=== PATIENT | male | born 1945 | race Caucasian/White ===

== ENCOUNTER → 2017-12-25 14:21 | Outpatient (CLI) | payer MEDICARE, SELFPAY | PROVIDERS: Family Provider Family Medicine Geriatric Medicine; Visit Provider Podiatrist | DX: L03.115 Cellulitis of right lower limb (principal) | CPT/HCPCS: 87070; 87077; 87186; 87205 ==

== ENCOUNTER → 2018-03-21 14:14 | Outpatient (CLI) | payer MEDICARE, SELFPAY ==
[2018-03-21 16:48] LABS: Absolute Neutrophil Count 1.7 X10^3/uL (2.0-7.7); Basophil# 0.08 X10^3/uL; Basophil% 2.3 % (0-1); Eosinophil# 0.17 X10^3/uL; Eosinophils% 4.8 % (0-5); Hematocrit 29.6 % (40-54); Hemoglobin 9.1 g/dl (13.0-16.5); Lymphocyte % 33.9 % (19-41); Mean Corp Hgb Conc 30.7 g/gl (32-36); Mean Corpuscular Hgb 32.5 pg (27.0-32.0); Mean Corpuscular Volume 105.7 fL (80-94); Mean Platelet Vol. 10.6 fl (6.2-12.0); Monocyte# 0.35 X10^3/uL; Monocyte% 9.9 % (0-10); Neutrophil # 1.74 X10^3/uL (2.7-7.7); Neutrophil % 49.1 % (47-70); Platelet Count 301 K/mm3 (150-450); RBC Distribution Width CV 19.5 % (11.6-14.6); RBC Distribution Width SD 72.4 fl (35.1-43.9); White Blood Count 3.5 K/mm3 (4.4-11.0)
[2018-03-21 16:59] LABS: Differential Indicated SCAN CRITERIA MET; POSITIVE COUNT NO; POSITIVE DIFFERENTIAL NO; POSITIVE MORPHOLOGY YES
[2018-03-21 17:01] LABS: ALB/GLOB Ratio 1.1 RATIO (0.9-2.4); AST(SGOT) 26 U/L (15-37); Alanine Aminotransfer ALT/SGPT 28 U/L (16-61); Albumin, Serum 3.1 g/dL (3.2-5.0); Alkaline Phosphatase 102 U/L (45-117); Anion Gap 6 (5-15); BUN 16 mg/dL (7-18); Calcium,Total 8.5 mg/dL (8.5-10.1); Chloride 103 mmol/L (98-107); Creatinine, Serum 0.67 mg/dL (0.70-1.30); EST Glomerular Filtration Rate 124 mL/min (>60); Est Glom Filt Rate - Afr Amer 150 mL/min (>60); Globulin 2.9 g/dL (2.2-4.2); Glucose 95 mg/dL (74-106); Potassium 4.2 mmol/L (3.5-5.1); Sodium Level 141 mmol/L (136-145); Thyroid Stim Hormone (TSH) 0.72 uIU/mL (0.358-3.74)
[2018-03-21 18:16] LABS: Platelet Estimate ADEQUATE (ADEQ)
[2018-03-21 18:17] LABS: Anisocytosis 1+; Hypochromasia RARE; Macrocytosis 1+
[2018-03-22 08:24] LABS: Vitamin D,25 Hydroxy 18.4 ng/mL (29.95-100.01)
== END ==
PROVIDERS: Family Provider Family Medicine Geriatric Medicine; PCP Family Medicine Geriatric Medicine; Visit Provider Family Medicine Geriatric Medicine
DX: I10 Essential (primary) hypertension (principal); E55.9 Vitamin D deficiency, unspecified
CPT/HCPCS: 36415; 80053; 82306; 84443; 85025

== ENCOUNTER → 2018-06-12 13:56 | Outpatient (CLI) | payer MEDICARE, SELFPAY ==
[2018-06-12 15:12] LABS: Absolute Lymphocyte Count 1.27 X10^3/ul (0.83-4.51); Basophil# 0.09 X10^3/uL; Basophil% 2.3 % (0-1); Eosinophil# 0.16 X10^3/uL; Eosinophils% 4.2 % (0-5); Hematocrit 31.4 % (40-54); Hemoglobin 9.5 g/dl (13.0-16.5); Lymphocyte # 1.27 X10^3/ul (4.0); Mean Corp Hgb Conc 30.3 g/gl (32-36); Mean Corpuscular Hgb 31.5 pg (27.0-32.0); Mean Platelet Vol. 10.1 fl (6.2-12.0); Monocyte% 7.8 % (0-10); Neutrophil # 2.03 X10^3/uL (2.7-7.7); Neutrophil % 52.7 % (47-70); Platelet Count 286 K/mm3 (150-450); RBC Distribution Width CV 19.6 % (11.6-14.6); RBC Distribution Width SD 72.1 fl (35.1-43.9); Red Blood Count 3.02 M/mm3 (4.6-6.2); White Blood Count 3.9 K/mm3 (4.4-11.0)
[2018-06-12 15:13] LABS: POSITIVE COUNT NO; POSITIVE DIFFERENTIAL NO
[2018-06-12 15:14] LABS: Differential Indicated SCAN CRITERIA MET; POSITIVE MORPHOLOGY YES
[2018-06-12 15:52] LABS: ALB/GLOB Ratio 1.3 RATIO (0.9-2.4); AST(SGOT) 19 U/L (15-37); Alanine Aminotransfer ALT/SGPT 28 U/L (16-61); Albumin, Serum 3.6 g/dL (3.2-5.0); Alkaline Phosphatase 82 U/L (45-117); Anion Gap 5 (5-15); BUN 18 mg/dL (7-18); BUN/Creat Ratio 26.1 RATIO (10-20); Calcium,Total 8.5 mg/dL (8.5-10.1); Chloride 104 mmol/L (98-107); Creatinine, Serum 0.69 mg/dL (0.70-1.30); EST Glomerular Filtration Rate 119 mL/min (>60); Est Glom Filt Rate - Afr Amer 144 mL/min (>60); Globulin 2.8 g/dL (2.2-4.2); Glucose 97 mg/dL (74-106); Potassium 3.7 mmol/L (3.5-5.1); Protein, Total 6.4 g/dL (6.4-8.2); Sodium Level 142 mmol/L (136-145)
[2018-06-12 15:54] LABS: Vitamin D,25 Hydroxy 14.1 ng/mL (29.95-100.01)
[2018-06-12 17:09] LABS: Anisocytosis 1+; Differential Comment SCANNED
== END ==
PROVIDERS: Family Provider Family Medicine Geriatric Medicine; PCP Family Medicine Geriatric Medicine; Visit Provider Family Medicine Geriatric Medicine
DX: I10 Essential (primary) hypertension (principal); E55.9 Vitamin D deficiency, unspecified
CPT/HCPCS: 36415; 80053; 82306; 84443; 85025

== ENCOUNTER → 2018-08-03 11:26 | Outpatient (CLI) | payer MEDICARE, SELFPAY | PROVIDERS: Family Provider Family Medicine Geriatric Medicine; PCP Family Medicine Geriatric Medicine; Visit Provider Internal Medicine Hematology & Oncology | DX: D46.9 Myelodysplastic syndrome, unspecified (principal) | CPT/HCPCS: 96367; 96413; J2405; J3490; J9025 ==

== ENCOUNTER → 2018-12-23 11:12 | Outpatient (CLI) | payer MEDICARE, SELFPAY ==
[2018-12-20 08:56] VITALS: BMI 29.8
[2018-12-23 13:21] LABS: Absolute Lymphocyte Count 1.28 X10^3/ul (0.83-4.51); Absolute Neutrophil Count 1.7 X10^3/uL (2.0-7.7); Basophil# 0.07 X10^3/uL; Basophil% 1.9 % (0-1); Eosinophil# 0.22 X10^3/uL; Eosinophils% 6.1 % (0-5); Hematocrit 23.8 % (40-54); Hemoglobin 7.3 g/dl (13.0-16.5); Lymphocyte # 1.28 X10^3/ul (4.0); Lymphocyte % 35.7 % (19-41); Mean Corp Hgb Conc 30.7 g/gl (32-36); Mean Corpuscular Hgb 32.7 pg (27.0-32.0); Mean Corpuscular Volume 106.7 fL (80-94); Mean Platelet Vol. 11.1 fl (6.2-12.0); Monocyte# 0.31 X10^3/uL; Monocyte% 8.6 % (0-10); Neutrophil # 1.71 X10^3/uL (2.7-7.7); Neutrophil % 47.7 % (47-70); Platelet Count 291 K/mm3 (150-450); RBC Distribution Width CV 21.3 % (11.6-14.6); RBC Distribution Width SD 78.7 fl (35.1-43.9); Red Blood Count 2.23 M/mm3 (4.6-6.2); White Blood Count 3.6 K/mm3 (4.4-11.0)
[2018-12-23 13:22] LABS: Differential Indicated SCAN CRITERIA MET; POSITIVE COUNT NO; POSITIVE DIFFERENTIAL NO; POSITIVE MORPHOLOGY YES
[2018-12-23 13:30] LABS: Vitamin D,25 Hydroxy 38.4 ng/mL (29.95-100.01)
[2018-12-23 13:45] LABS: ALB/GLOB Ratio 1.1 RATIO (0.9-2.4); AST(SGOT) 24 U/L (15-37); Alanine Aminotransfer ALT/SGPT 37 U/L (16-61); Albumin, Serum 3.3 g/dL (3.2-5.0); Alkaline Phosphatase 89 U/L (45-117); Anion Gap 10 (5-15); BUN 19 mg/dL (7-18); BUN/Creat Ratio 25.7 RATIO (10-20); Calcium,Total 8.3 mg/dL (8.5-10.1); Chloride 107 mmol/L (98-107); Creatinine, Serum 0.74 mg/dL (0.70-1.30); EST Glomerular Filtration Rate 110 mL/min (>60); Est Glom Filt Rate - Afr Amer 133 mL/min (>60); Glucose 116 mg/dL (74-106); Protein, Total 6.3 g/dL (6.4-8.2); Sodium Level 143 mmol/L (136-145); Thyroid Stim Hormone (TSH) 0.91 uIU/mL (0.358-3.74)
[2018-12-23 13:50] LABS: Anisocytosis 2+; Hypochromasia 2+; Macrocytosis 1+; Platelet Estimate ADEQUATE (ADEQ); Tear Drop Cell 1+
== END ==
PROVIDERS: Family Provider Family Medicine Geriatric Medicine; PCP Family Medicine Geriatric Medicine; Visit Provider Family Medicine Geriatric Medicine
DX: I10 Essential (primary) hypertension (principal); E55.9 Vitamin D deficiency, unspecified
CPT/HCPCS: 36415; 80053; 82306; 84443; 85025

== ENCOUNTER → 2019-06-23 | Outpatient (CLI) | payer MEDICARE, SELFPAY ==
[2019-06-12 08:32] VITALS: BMI 30.4
[2019-06-23 11:51] LABS: Absolute Lymphocyte Count 0.96 X10^3/uL (0.83-4.51); Absolute Neutrophil Count 1.2 X10^3/uL (2.0-7.7); Eosinophil# 0.27 X10^3/uL; Hematocrit 23.7 % (40-54); Hemoglobin 7.8 g/dL (13.0-16.5); Lymphocyte # 0.96 X10^3/ul (4.0); Lymphocyte % 35.6 % (19-41); Mean Corp Hgb Conc 32.9 g/dL (32-36); Mean Corpuscular Hgb 31.1 pg (27.0-32.0); Mean Corpuscular Volume 94.4 fL (80-94); Mean Platelet Vol. 12.4 fl (6.2-12.0); Monocyte# 0.28 X10^3/uL; Monocyte% 10.4 % (0-10); NRBC Flagged by Analyzer 0 % (0-5); Neutrophil # 1.19 X10^3/uL (2.7-7.7); Platelet Count 105 K/mm3 (150-450); RBC Distribution Width CV 16.5 % (11.6-14.6); RBC Distribution Width SD 55.8 fl (35.1-43.9); Red Blood Count 2.51 M/mm3 (4.6-6.2); White Blood Count 2.7 K/mm3 (4.4-11.0)
[2019-06-23 12:23] LABS: ALB/GLOB Ratio 0.9 RATIO (0.9-2.4); AST(SGOT) 32 U/L (15-37); Alanine Aminotransfer ALT/SGPT 62 U/L (16-61); Albumin, Serum 2.9 g/dL (3.2-5.0); Alkaline Phosphatase 92 U/L (45-117); Anion Gap 6 (5-15); BUN 13 mg/dL (7-18); BUN/Creat Ratio 18.2 RATIO (10-20); Calcium,Total 7.9 mg/dL (8.5-10.1); Chloride 108 mmol/L (98-107); Creatinine, Serum 0.72 mg/dL (0.70-1.30); EST Glomerular Filtration Rate 114 mL/min (>60); Est Glom Filt Rate - Afr Amer 138 mL/min (>60); Globulin 3.2 g/dL (2.2-4.2); Glucose 99 mg/dL (74-106); Potassium 4.2 mmol/L (3.5-5.1); Protein, Total 6.1 g/dL (6.4-8.2); Sodium Level 140 mmol/L (136-145); Thyroid Stim Hormone (TSH) 0.69 uIU/mL (0.358-3.74)
[2019-06-23 22:02] LABS: Vitamin D,25 Hydroxy 25.1 ng/mL (29.95-100.01)
== END | disposition home or self-care (01) ==
LOC: POLAB3 09:34
PROVIDERS: Family Provider Family Medicine Geriatric Medicine; PCP Family Medicine Geriatric Medicine; Visit Provider Family Medicine Geriatric Medicine
DX: E55.9 Vitamin D deficiency, unspecified (principal); I10 Essential (primary) hypertension
CPT/HCPCS: 36415; 80053; 82306; 84443; 85025

== ENCOUNTER 2019-07-29 11:24 | Emergency (ER) | payer MEDICARE, SELFPAY ==
[2019-07-23 09:59] VITALS: BMI 29.2
[2019-07-29 11:26] VITALS: BP 118/48; PULSE 56; RESP 18; TEMP 36.4; O2SAT 98; BMI 28.7
--- NOTE | 2019-07-29 11:33 | RAD_ITS ---
STUDY: X-RAY - RIGHT HAND REASON FOR EXAM: Male, 74 years old. Right hand/thumb pain. No known injury. TECHNIQUE: 3 view(s) of the hand on 4 images. COMPARISON: None. FINDINGS: There is mild subarticular degenerative sclerosis of the distal radius. There is generative subarticular sclerosis of the distal ulna as well, and mild cortical irregularity near the ulnar styloid. There is joint space narrowing of the radiocarpal articulation consistent with degenerative arthrosis. There is degenerative arthrosis of the distal radioulnar joint with ulnar periarticular spurring. Small degenerative ossicle projects along the anterior articular margin of the distal radius at the level of the first carpal row. Normal visualized carpal bones. Normal carpal articulations There is degenerative arthrosis of the carpometacarpal (CMC) articulation of the thumb with notable periarticular spurring. Normal second through fifth carpometacarpal joints. Normal metacarpi. There is degenerative arthrosis of the metacarpophalangeal (MCP) joints. There is degenerative arthrosis of the interphalangeal joint of the thumb with articular joint space narrowing and small periarticular degenerative ossification. Normal proximal and distal phalanges of the thumb. There is degenerative arthrosis with particular narrowing at the second and third metacarpophalangeal (MCP) joints, while more mild narrowing is seen at the fifth metacarpal phalangeal joint. There is some degenerative arthrosis at the second distal interphalangeal joint. Normal proximal and distal interphalangeal joints of the third through fifth fingers. Early periarticular spurring and periarticular general ossification at the base of the second distal phalanx. Otherwise, normal phalanges of the second through fifth fingers. Some soft tissue swelling in the hand extending to the anterior wrists as well as the base of the fingers is suggested. There is no demonstrated osseous structures of lesion or acute fracture. RAD/Hand Min 3 Views IMPRESSION: Degenerative joint disease of the hand and wrist, as described above. Electronically Signed: Anshu Padilla MD at 12:10 EDT , Service support ,
--- NOTE | 2019-07-29 11:43 | ED.VIS.GEN ---
History of Present Illness Chief Complaint: Upper Extremity Injury Informant: Patient Onset: Yesterday Context: Gradual Onset Timing: Continuous Current Severity: Moderate Maximum Severity: Moderate Narrative: Patient presents to the emergency department with atraumatic right thumb pain. The patient has a history of myelodysplastic syndrome. He states yesterday, he had some pain in his thumb. Today, when he woke, he noticed it was swollen. He denies any definitive trauma. He denies any fevers or chills. He denies any history of gout. He is otherwise been in his normal state of health. He states he is never had anything like this before. He is right-hand dominant. He denies any puncture or trauma. Prior similar symptoms: No Recent Illness/Hospitalization: No Past Medical History - Allergies and Home Meds Allergies/Adverse Reactions: Allergies No Known Allergies Allergy (Verified 07/29/19 11:28) Primary Care Physician: Chente Phan Chi, MD [Primary Care Provider] - Prior records reviewed: Yes Past Medical History: - - MDS, anemia Smoking Status: Former smoker Review of Systems General: Denies: Chills, Fever, Sweats Eyes: Denies: Visual changes - bilaterally, Diplopia ENT: Denies: Rhinorrhea, Sore throat Cardiovascular: Denies: Chest pain, Palpitations Respiratory: Denies: Dyspnea, Cough, Dyspnea on exertion Gastrointestinal: Denies: Abdominal pain, Nausea, Vomiting, Diarrhea, Melena, Hematochezia Genitourinary: Denies: Dysuria, Hematuria, Frequency Musculoskeletal: Reports: Myalgias. Denies: Back pain, Extremity Pain Skin: Denies: Rash, Wounds Neurological: Denies: Headache, Weakness, Numbness Physical Exam Vital Signs/Narrative: Vital Signs Temp Pulse Resp BP Pulse Ox 07/29/19 11:26 97.6 F L 56 L 18 118/48 L 98 Inital Vital Signs reviewed: Yes General: Well nourished, Well developed, No Acute Distress Head: Normocephalic, Atraumatic Eyes: Perrl, EOMI ENT: Moist mucous membranes, No rhinorrhea Neck: Supple, Nontender Cardiovascular: Regular rate, Regular rhythm, No murmurs Respiratory: No distress, CTA bilaterally, Chest nontender Abdomen: Soft, Nontender, Nondistended, Normal bowel sounds Back: Nontender, Normal Inspection Extremities: Tenderness, Edema, - - The patient presents to the emergency department with edema at the base of the thumb. There is no erythema. There is no streaking. His pulses are normal. The skin is intact. He is able to flex and extend. Skin: Normal color, No rash Neurological: Alert, Oriented x3, Cranial nerves II-XII grossly intact, Normal Strength, Normal Sensation Psychological: Normal affect, Normal Mood Diagnostic/Tx/Re-eval Clinical Impression(s) from Imaging Studies Hand X-Ray 07/29/19 11:33 IMPRESSION: Degenerative joint disease of the hand and wrist, as described above. Electronically Signed: Anshu Padilla MD at 12:10 EDT , Service support , - Medical Decision Making The patient does have swelling at the base of the stone. His pulses are normal. There is really no erythema. It is tender to touch, but is not hot. It does not appear to be cellulitic. I did obtain plain films. There is rather advanced degenerative changes within the joint. The patient is also on anticoagulants. My suspicion is that this is likely traumatic hematoma or contusion. I do not feel that this represents a joint infection. I am going to treat the patient symptomatically with a thumb spica that is Velcro. He will continue ice and elevation. I counseled him that this is not improving over the next 24 hours or his pain is worsening to return. He is comfortable with this plan of care. Impression 1. Right thumb contusion with hematoma ED Disposition - Plan for ED Patient: Disposition: Home or Assisted Living Instructions: CONTUSION, Upper Extremity Referrals: Chente Phan Chi, MD [Primary Care Provider] -
[2019-07-29] MEDS: HYDROcodone Bitartrate/Apap 5/325 Tablet PO (12:31)
== END 2019-07-29 12:36 | disposition home or self-care (01) ==
PROVIDERS: Emergency Provider Emergency Medicine; Family Provider Family Medicine Geriatric Medicine; PCP Family Medicine Geriatric Medicine
DX: S60.011A Contusion of right thumb without damage to nail, initial encounter (principal); D46.9 Myelodysplastic syndrome, unspecified; Z87.891 Personal history of nicotine dependence; X58.XXXA Exposure to other specified factors, initial encounter; Y93.89 Activity, other specified; Y92.89 Other specified places as the place of occurrence of the external cause; Y99.8 Other external cause status
CPT/HCPCS: 73130; 85025; 99283

== ENCOUNTER → 2019-07-30 | Outpatient (CLI) | payer MEDICARE, SELFPAY ==
[2019-07-29 11:26] VITALS: BMI 28.7
[2019-07-30 17:08] LABS: Absolute Lymphocyte Count 1.41 X10^3/uL (0.83-4.51); Absolute Neutrophil Count 3.8 X10^3/uL (2.0-7.7); Basophil# 0.02 X10^3/uL; Basophil% 0.3 % (0-1); Eosinophil# 0.04 X10^3/uL; Eosinophils% 0.6 % (0-5); Hematocrit 23.3 % (40-54); Hemoglobin 7.5 g/dL (13.0-16.5); Lymphocyte # 1.41 X10^3/ul (4.0); Lymphocyte % 21.3 % (19-41); Mean Corp Hgb Conc 32.2 g/dL (32-36); Mean Corpuscular Hgb 29.2 pg (27.0-32.0); Mean Corpuscular Volume 90.7 fL (80-94); Mean Platelet Vol. 11.4 fl (6.2-12.0); Monocyte# 1.29 X10^3/uL; Monocyte% 19.5 % (0-10); NRBC Flagged by Analyzer 0 % (0-5); Neutrophil # 3.84 X10^3/uL (2.7-7.7); Platelet Count 157 K/mm3 (150-450); RBC Distribution Width CV 13.7 % (11.6-14.6); RBC Distribution Width SD 45.4 fl (35.1-43.9); Red Blood Count 2.57 M/mm3 (4.6-6.2); White Blood Count 6.6 K/mm3 (4.4-11.0)
[2019-07-30 17:25] LABS: Anion Gap 7 (5-15); BUN 16 mg/dL (7-18); BUN/Creat Ratio 21.1 RATIO (10-20); Calcium,Total 8.6 mg/dL (8.5-10.1); Chloride 105 mmol/L (98-107); Creatinine, Serum 0.76 mg/dL (0.70-1.30); EST Glomerular Filtration Rate 106 mL/min (>60); Erythrocyte Sedimentation Rate 36 mm/hr (0-20); Est Glom Filt Rate - Afr Amer 129 mL/min (>60); Glucose 117 mg/dL (74-106); Potassium 4.4 mmol/L (3.5-5.1); Sodium Level 137 mmol/L (136-145); Uric Acid 1.9 mg/dL (3.5-7.2)
== END | disposition home or self-care (01) ==
PROVIDERS: Family Provider Family Medicine Geriatric Medicine; PCP Family Medicine Geriatric Medicine; Visit Provider Family Medicine Geriatric Medicine
DX: R79.9 Abnormal finding of blood chemistry, unspecified (principal)
CPT/HCPCS: 36415; 80048; 84550; 85025; 85652; 86140

== ENCOUNTER → 2019-08-01 | Outpatient (CLI) | payer MEDICARE, SELFPAY ==
[2019-07-29 11:26] VITALS: BMI 28.7
--- NOTE | 2019-08-01 12:50 | VDUE_ITS ---
Reason For Study: Edema Right Proximal Left Proximal Right jugular vein is spontaneous, widely Left jugular vein is spontaneous, widely patent, phasic, with no intraluminal patent, phasic, with no intraluminal echogenicity noted. echogenicity noted. Right subclavian vein is spontaneous, widely Left subclavian vein is spontaneous, widely patent, phasic, with no intraluminal patent, phasic, with no intraluminal echogenicity noted. echogenicity noted. Right Lower Arm Left Arm Right radial vein is compressible. Left axillary vein is spontaneous, patent, Right ulnar vein is compressible. phasic, competent, compressible and Right Arm demonstrates augmentation. Right axillary vein is spontaneous, patent, Left brachial vein is compressible. phasic, competent, compressible and Left cephalic vein is compressible. demonstrates augmentation. Left basilic vein is compressible. Right brachial vein is compressible. Left Lower Arm Right cephalic vein is compressible. Left radial vein is compressible. Right basilic vein is compressible. Left ulnar vein is compressible. Patient Safety Prelim faxed to Dr. Phan. Interpretation Summary Deep veins of the upper extremities are bilaterally patent and compressible segmentally. There is no evidence of deep vein thrombosis on either side. The superficial veins of the upper extremities, the basilic and cephalic veins, are patent and compressible bilaterally. There is no evidence of upper extremity superficial thrombophlebitis on either side involving the veins imaged. Ordering Physician: Chente Phan Chi Referring Physician: Chente Phan Chi Performed By: Jagruti Ospina, YARIEL, RVT ?
== END | disposition home or self-care (01) ==
LOC: CVS 12:48
PROVIDERS: Family Provider Family Medicine Geriatric Medicine; PCP Family Medicine Geriatric Medicine; Referring Provider Family Medicine Geriatric Medicine; Visit Provider Family Medicine Geriatric Medicine
DX: R60.0 Localized edema (principal)
CPT/HCPCS: 93970

== ENCOUNTER 2019-09-03 13:05 | Inpatient (IN) | payer MEDICARE, SELFPAY ==
[2019-09-02 08:50] VITALS: BMI 28.1
[2019-09-03] VITALS (16 sets, daily range): BP systolic 112–158; BP diastolic 68–95; PULSE 57–80; RESP 15–20; TEMP 36.7–37.3; O2SAT 95–100; BMI 29.2; BMI 29.3; BMI 28.5
--- NOTE | 2019-09-03 13:44 | EKG12_ITS ---
Test Reason : CP Blood Pressure : / mmHG Vent. Rate : 066 BPM Atrial Rate : 068 BPM P-R Int : 000 ms QRS Dur : 080 ms QT Int : 388 ms P-R-T Axes : 000 -36 033 degrees QTc Int : 406 ms Atrial fibrillation Left axis deviation Low voltage QRS Abnormal ECG Confirmed by BASIM MARTINEZ, AMOR ([id number]), supervising film or videotape editor AMERICA MORALES ([id number]) on 09/10/2019 9:36:19 A M Referred By: Kiara Powell Confirmed By:FREDERICK STALLWORTH MD
--- NOTE | 2019-09-03 13:45 | ED.DCSUM_ITS ---
History of Present Illness Chief Complaint: Chest Pain Informant: Patient Onset: Today, Hours - a couple hours ago Activity at onset: Rest - just before started to eat lunch Timing: Continuous Quality: - - like someone pushing on it Location: Substernal - middle, a little caudal Current Severity: Mild Maximum Severity: Mild Worsened By: Nothing. Not Worsened By: Exertion, Breathing Relieved By: Nothing - has tried no medications; no chg w/ position, exertion, deep insp Associated Symptoms: Negative for: Nausea, Vomiting, Diaphoresis, Dyspnea, Cough, Fever, Lightheadedness, Palpitations Narrative: Patient has a history of paroxysmal atrial fibrillation for which he is on Coumadin, no other known cardiac disease. Last time he had a stress test, he cannot remember but he does not recall ever having a heart catheterization. States he cannot tell if eating manipulated the pain or not, but the discomfort started just prior sitting down to eat lunch. He then lost his appetite and did not feel like eating much. No nausea, diaphoresis, lightheadedness, radiation to the back, jaw, neck, arms, or anywhere else. No abdominal discomfort. On review of systems states he has been having small amount of bright red blood per rectum in the past week but nothing major. No melena. No other bleeding. 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 Denies: Palpitations Respiratory: Denies: Dyspnea, Cough, Dyspnea on exertion Gastrointestinal: Reports: Hematochezia. Denies: Abdominal pain, Nausea, Vomiting, Diarrhea, Melena Genitourinary: Denies: Dysuria, Hematuria, Frequency Musculoskeletal: Denies: Back pain, Extremity Pain Skin: Denies: Rash, Wounds Neurological: Denies: Headache, Weakness, Numbness Hematologic: Reports: Easy bruising, Easy bleeding Allergy: Denies: Uticaria, Swelling of the mouth, Swelling of the tongue Physical Exam Vital Signs/Narrative: Vital Signs Temp Pulse Resp BP Pulse Ox 09/03/19 13:07 98.8 F 64 20 H 158/85 H 100 Inital Vital Signs reviewed: Yes General: Well nourished, Well developed, No Acute Distress - well-appearing, conversive, pleasant Head: Normocephalic, Atraumatic Eyes: Perrl, EOMI ENT: Moist mucous membranes, No rhinorrhea Neck: Supple, Nontender, No JVD Cardiovascular: No murmurs, Irregular, Murmur - slight 1/6 systolic. Negative for: Tachycardia Respiratory: No distress, CTA bilaterally, Chest nontender Abdomen: Soft, Nontender, Nondistended, Normal bowel sounds. Negative for: Pulsatile mass Back: Nontender, Normal Inspection. Negative for: CVA tenderness Extremities: Nontender, No edema. Negative for: Calf Tenderness Skin: Normal color, No rash, No Trauma Neurological: Alert, Oriented x3, Cranial nerves II-XII grossly intact, Normal Strength, Normal Sensation Psychological: Normal affect, Normal Mood Diagnostic/Tx/Re-eval Impressions Chest X-Ray 09/03/19 14:25 IMPRESSION: 1. A right IJ MediPort catheter in place. The tip of an pulmonary head is now at the junction of the right jugular vein and superior vena cava. 2. Some mild vascularity and interstitial crowding is seen in the lung bases bilaterally. Electronically Signed: Scott King, at 15:02 EDT Tel , Service support , 09/03/19 14:25 Chest 1 View (Portable) [RAD] Stat Laboratory Results 09/03/19 09/03/19 09/03/19 14:03 14:03 14:03 WBC 0.5 L* RBC 2.11 L Hgb 6.1 L Hct 18.9 L MCV 89.6 MCH 28.9 MCHC 32.3 RDW Std Deviation 44.4 H RDW Coeff of Yamileth 14.0 Plt Count 179 MPV 11.2 Immature Gran % (Auto) 0.000 Neut % (Auto) 13.8 L Lymph % (Auto) 78.4 H Esmeralda % (Auto) 3.9 Eos % (Auto) 3.9 Baso % (Auto) 0.0 Absolute Neuts (auto) 0.1 L Absolute Lymphs (auto) 0.40 L Nucleated RBC % 0 Differential Comment SCANNED Diff Path Review March foll PT 16.9 H INR 1.4 Sodium 139 Potassium 4.2 Chloride 107 Carbon Dioxide 28.0 Anion Gap 4 L BUN 24 H Creatinine 0.77 Estim Creat Clear Calc 64.89 Est GFR (MDRD) Af Amer 126 Est GFR (MDRD) Non-Af 104 BUN/Creatinine Ratio 31.0 H Glucose 155 H Calcium 8.2 L Troponin I 0.121 H Crossmatch 09/03/19 14:03 WBC RBC Hgb Hct MCV MCH MCHC RDW Std Deviation RDW Coeff of Yamileth Plt Count MPV Immature Gran % (Auto) Neut % (Auto) Lymph % (Auto) Esmeralda % (Auto) Eos % (Auto) Baso % (Auto) Absolute Neuts (auto) Absolute Lymphs (auto) Nucleated RBC % Differential Comment Diff Path Review PT INR Sodium Potassium Chloride Carbon Dioxide Anion Gap BUN Creatinine Estim Creat Clear Calc Est GFR (MDRD) Af Amer Est GFR (MDRD) Non-Af BUN/Creatinine Ratio Glucose Calcium Troponin I Crossmatch See Detail - Rhythm Strip Rhythm Strip: A-fib Rate: 66 Ectopy: None - EKG Initial EKG Interpretation: No Acute Injury Pattern, Atrial Fibrillation, - - no inverted T waves or ST segment deviations Treatment: GI Cocktail, - - asa held due to warfarin anticoagulation NAJMA Risk: Age >/= 65, >/= 3RF, Elevated Enzymes Score: 3 - Medical Decision Making Patient was initially given a GI cocktail, he states later after the medication that his discomfort is feeling much better and he only has a 1-2/10 pain, and declines nitroglycerin. His vital signs are stable. Aspirin was held only because he is anticoagulated and having GI bleeding which is not active. His cardiac enzymes are nonspecifically elevated, and he had 2 units of blood transfusion yesterday for a hemoglobin that was in the fives, now it is 6.1 so I am ordering him 2 more after consenting him. Discussed with Dr. Powell for PCU admission for further treatment and evaluation. Critical care time (excluding procedures): 30-74 minutes - 35 min, including time spent discussing with patient, family, salon sales consultant, arranging admission, performing direct patient care at the bedside. ED Disposition - Plan for ED Patient: Disposition: Acute Care [facility] Diagnosis: Acute on chronic blood loss anemia, MDS (myelodysplastic syndrome), low grade, Chest pain, unspecified, A-fib, Pancytopenia, Neutropenia Referrals: Chente Phan Chi, MD [Primary Care Provider] -
[2019-09-03] MEDS: Mag Hydrox/Al Hydrox/Simeth 30 ML UDC PO (14:18)
[2019-09-03] MEDS: 0.9% Normal Saline 1,000 ML 150 ML IV (14:18)
--- NOTE | 2019-09-03 14:25 | RAD_ITS ---
EXAM DESCRIPTION: PORTABLE AP CHEST CLINICAL HISTORY: 74 years Male, chest pain Mediport catheter placement COMPARISON: Portable chest 10/17/2017 FINDINGS: A right IJ MediPort catheter is noted in place which has been pulled back. The pigtail catheter is now at the junction of the right jugular vein and superior vena cava.The heart and mediastinum appear to be within normal limits. The lungs appear to be well areated without evidence of pneumonic consolidation or pleural effusion. There is vascular and interstitial crowding in the lung bases bilaterally. RAD/Chest 1 View (Portable) IMPRESSION: 1. A right IJ MediPort catheter in place. The tip of an pulmonary head is now at the junction of the right jugular vein and superior vena cava. 2. Some mild vascularity and interstitial crowding is seen in the lung bases bilaterally. Electronically Signed: Scott King, at 15:02 EDT Tel , Service support ,
[2019-09-03 14:57] LABS: International Normalized Ratio 1.4; Prothrombin Time (Protime)PT. 16.9 SECONDS (11.7-14.9)
[2019-09-03 15:04] LABS: Absolute Neutrophil Count 0.1 X10^3/uL (2.0-7.7); Eosinophil# 0.02 X10^3/uL; Eosinophils% 3.9 % (0-5); Hematocrit 18.9 % (40-54); Hemoglobin 6.1 g/dL (13.0-16.5); Lymphocyte % 78.4 % (19-41); Mean Corp Hgb Conc 32.3 g/dL (32-36); Mean Corpuscular Hgb 28.9 pg (27.0-32.0); Mean Corpuscular Volume 89.6 fL (80-94); Mean Platelet Vol. 11.2 fl (6.2-12.0); Monocyte# 0.02 X10^3/uL; Monocyte% 3.9 % (0-10); NRBC Flagged by Analyzer 0 % (0-5); Neutrophil # 0.07 X10^3/uL (2.7-7.7); Neutrophil % 13.8 % (47-70); POSITIVE COUNT YES; POSITIVE DIFFERENTIAL YES; POSITIVE MORPHOLOGY YES; Platelet Count 179 K/mm3 (150-450); RBC Distribution Width SD 44.4 fl (35.1-43.9); Red Blood Count 2.11 M/mm3 (4.6-6.2)
[2019-09-03 15:07] LABS: Anion Gap 4 (5-15); BUN 24 mg/dL (7-18); Calcium,Total 8.2 mg/dL (8.5-10.1); Chloride 107 mmol/L (98-107); Creatinine, Serum 0.77 mg/dL (0.70-1.30); EST Glomerular Filtration Rate 104 mL/min (>60); Est Glom Filt Rate - Afr Amer 126 mL/min (>60); Estimated Creatinine Clearance 64.89 ml/min; Glucose 155 mg/dL (74-106); Potassium 4.2 mmol/L (3.5-5.1); Sodium Level 139 mmol/L (136-145)
[2019-09-03 15:37] LABS: Differential Indicated SCAN CRITERIA MET; White Blood Count 0.5 K/mm3 (4.4-11.0)
[2019-09-03 15:44] LABS: Differential Comment SCANNED
[2019-09-03] MEDS: Nitroglycerin SL (ED/IMG/CATH) 0.4 MG TABLET SUBLINGUAL (16:15)
--- NOTE | 2019-09-03 16:36 | PCM.HP.STD ---
Problem List (1) Chest pain, unspecified Status: Acute (2) Acute on chronic blood loss anemia Status: Chronic (3) HTN (hypertension) Status: Chronic (4) A-fib Status: Chronic (5) Hyperlipidemia Status: Chronic (6) Pancytopenia Status: Chronic History of Present Illness Date of Admission: 09/03/19 Chief Complaint: Chest pain The patient is a 74 year old M with a pmhx of myelodysplastic syndrome (on chemo last dose about 2 weeks ago) requiring frequent blood transfusions, with associated pancytopenia, atrial fibrillation on warfarin, hyperlipidemia, who presented to the ER today with chest pain. This began today before he started eating lunch. It was a 5/10 pain that felt like somebody pushing on him, that was located in the lower midsternal region. It has been constant. He took a few bites of lunch but could not tolerate more due to the pain. He just received nitro in the ER but states it has not helped. He notes the pain is still present and is about 4/10 right now. He reports associated symptoms including sob with exertion, and lightheadedness on standing. He denies diaphoresis. Further complicating this is his anemia. He received an outpatient blood transfusion yesterday - 2 units. Today his Hgb is 6.1. He reports that he has had drops of red blood on the toilet paper with bowel movements. He denies black stools. He has had watery diarrhea with mucus in it for the past 2 days - about 2-3 times per day. He has no nausea/vomiting. He cannot remember when his last colonoscopy was in the past, and says it has been several years. He denies a hx of hemorrhoids. He denies constipation. He has seen Dr. Goins in the past - 2017 for right IJ power port placement. He denies NSAID use, and denies alcohol or tobacco use. [] Past Medical History Past Medical History (Chronic Problems): Chronic Problems (Last Reviewed 09/01/19 @ 10:15 by Regina Nieves) Anemia (Chronic) HTN (hypertension) (Chronic) A-fib (Chronic) MDS (myelodysplastic syndrome), low grade (Chronic) RA (refractory anemia) (Chronic) Hyperlipidemia (Chronic) Acute on chronic blood loss anemia (Chronic) Pancytopenia (Chronic) Medical History: Medical History (Last Reviewed 09/01/19 @ 10:15 by Regina Nieves) PORT PLACEMENT Abdominal aneurysm I71.4 Hyperlipidemia E78.5 Allergies No Known Allergies Allergy (Verified 09/03/19 13:07) Home Medications: Ambulatory Orders Medication Instructions Recorded Atenolol [Tenormin (beta clint)] 25 mg PO DAILY 08/15/17 Atorvastatin Calcium [Lipitor] 40 mg PO QHS 08/15/17 Warfarin [Coumadin] 3 mg PO DAILY 08/15/17 traMADol [Ultram (G)] 50 mg PO BID PRN PRN 11/01/17 Magic Mouth Wash 10 ml PO 4X/DAY #300 ml 09/01/19 Potassium Chloride 20 meq PO BID 09/03/19 Surgical History: Surgical History (Last Reviewed 09/01/19 @ 10:15 by Regina Nieves) H/O hernia repair Z98.890, Z87.19 History of arthroplasty of left knee Z96.652 Hx of cholecystectomy Z90.49 Surgical History: cholecystectomy, herniorrhaphy, total knee arthroplasty, - - power port placement Psychiatric History: No pertinent psych hx Lives: Spouse/ Significant Other, [facility] - halfway Smoking Status: Former smoker Alcohol: None Drugs: None - *Family History Maternal Family History: Family History (Last Reviewed 09/01/19 @ 10:15 by Regina Nieves) Father CVA (cerebral vascular accident) Mother CVA (cerebral vascular accident) History Items: Stroke Paternal Family History: Family History (Last Reviewed 09/01/19 @ 10:15 by Regina Nieves) Father CVA (cerebral vascular accident) Mother CVA (cerebral vascular accident) History Items: Stroke Review of Systems Constitutional: Denies: Chills, Fever, Weight Change HEENT: Denies: Head Aches, Sinus Congestion, Sinus Drainage Cardiovascular: Reports: Chest Pain, Chest Pressure, Light Headedness. Denies: Edema, Heaviness, Palpitations, Syncope Respiratory: Reports: Shortness of breath upon exertion. Denies: Cough, Shortness of breath at rest, Sputum production Gastrointestinal: Reports: Diarrhea, Hematochezia. Denies: Abdominal Pain, Hematemesis, Nausea, Melena, Vomiting Genitourinary: Denies: Dysuria, Retention, Urgency Musculoskeletal: Denies: Joint Pain, Joint Tenderness Skin: Denies: Rash, Wounds Neurological: Denies: Numbness, Tingling, Focal weakness Psychiatric: Denies: Anxiety, Depression, Homicidal Ideations, Suicidal Ideations Hematologic/ Lymphatic: Denies: Easy Bruising, Easy Bleeding VTE Information - Inpt Only VTE Present on Admission: No VTE Mechan Device Prophylaxis: SCD's VTE Pharm Prophylaxis ordered?: No Reason prophylaxis not ordered:: Medical Contraindication Patient Problems: Active and Suspected Problems (Last Reviewed 09/01/19 @ 10:15 by Regina Nieves) Chemotherapy management, encounter for (Suspected) Encounter for education (Acute) Chest pain, unspecified (Acute) Neutropenia (Acute) - Physical Exam General: Alert, Oriented x3, Cooperative HEENT: Atraumatic, PERRLA, EOMI, Normocephalic Neck: Supple, No JVD, Negative Carotid Bruits Lungs: Clear to auscultation, Normal air movement Cardiovascular: Regular rate, No murmurs Abdomen: Bowel Sounds Present, Soft, Non Tender Extremities: No edema, Capillary Refill Less than 3 Seconds Skin: No rashes, No breakdown Musculoskeletal: No Tenderness to Palpation of Joints or Extremities Neurological: Cranial nerves II-XII grossly intact Psych/Mental Status: Normal Affect, Appropriate, Alert and oriented to time, place, person, mood and affect Vital Signs Temp Pulse Resp BP Pulse Ox 98.8 F 62 15 125/95 H 99 09/03/19 13:07 09/03/19 16:15 09/03/19 16:05 09/03/19 16:15 09/03/19 16:05 Oxygen Delivery Method Room Air Weight: 204 lb 2.369 oz Body Mass Index (BMI) 29.2 Laboratory Tests Past 24 Hrs 09/03/19 09/03/19 09/03/19 14:03 14:03 14:03 WBC 0.5 L* RBC 2.11 L Hgb 6.1 L Hct 18.9 L MCV 89.6 MCH 28.9 MCHC 32.3 RDW Std Deviation 44.4 H RDW Coeff of Yamileth 14.0 Plt Count 179 MPV 11.2 Immature Gran % (Auto) 0.000 Neut % (Auto) 13.8 L Lymph % (Auto) 78.4 H [place] % (Auto) 3.9 Eos % (Auto) 3.9 Baso % (Auto) 0.0 Absolute Neuts (auto) 0.1 L Absolute Lymphs (auto) 0.40 L Nucleated RBC % 0 Differential Comment SCANNED Diff Path Review May foll PT 16.9 H INR 1.4 Sodium 139 Potassium 4.2 Chloride 107 Carbon Dioxide 28.0 Anion Gap 4 L BUN 24 H Creatinine 0.77 Estim Creat Clear Calc 64.89 Est GFR (MDRD) Af Amer 126 Est GFR (MDRD) Non-Af 104 BUN/Creatinine Ratio 31.0 H Glucose 155 H Calcium 8.2 L Total Bilirubin Direct Bilirubin AST ALT Alkaline Phosphatase Troponin I 0.121 H Total Protein Albumin Blood Type Antibody Screen Crossmatch 09/03/19 09/03/19 14:03 14:03 WBC RBC Hgb Hct MCV MCH MCHC RDW Std Deviation RDW Coeff of Yamileth Plt Count MPV Immature Gran % (Auto) Neut % (Auto) Lymph % (Auto) [place] % (Auto) Eos % (Auto) Baso % (Auto) Absolute Neuts (auto) Absolute Lymphs (auto) Nucleated RBC % Differential Comment Diff Path Review PT INR Sodium Potassium Chloride Carbon Dioxide Anion Gap BUN Creatinine Estim Creat Clear Calc Est GFR (MDRD) Af Amer Est GFR (MDRD) Non-Af BUN/Creatinine Ratio Glucose Calcium Total Bilirubin Pending Direct Bilirubin Pending AST Pending ALT Pending Alkaline Phosphatase Pending Troponin I Total Protein Pending Albumin Pending Blood Type Pending Antibody Screen Pending Crossmatch See Detail Assessment/Plan All Active Problems (Last Reviewed 09/01/19 @ 10:15 by Regina Nieves) Encounter for education (Acute) Chest pain, unspecified (Acute) Neutropenia (Acute) 1. Chest pain with indeterminate troponin - EKG with Afib, no acute changes. No hx CAD. This could be 2/2 anemia. Consult cardiology, he has never seen a shot blast equipment operator. Repeat AM EKG. Maintain no tele. Obtain Echo. 2. Acute on chronic anemia - Drops of blood on toilet paper, recent watery diarrhea with mucus. Denies melanotic stools, no emesis. Hold warfarin. Received 2 units PRBC yesterday. Today Hgb 6.1. T/C [address] Goins. Start protonix IV. NPO now. Cycle H/H. INR 1.4. -Last colonoscopy many years ago he cannot remember when. -He is symptomatic with lightheadedness on standing and SOB with exertion. -No NSAID/EtOH/Nicotine use. 3. Chronic pancytopenia 2/2 MDS - on chemo last dose 2 weeks prior. Pt of Dr. Dent - C/S. Right port. 4. Afib - he has never seen cardiology. Warfarin held. INR 1.4. On atenolol for rate control. 5. HLD - statin DVT ppx: SCDs This patient was seen by Jose Thomas PA-C under the supervision of Dr. Powell.
[2019-09-03 16:55] LABS: AST(SGOT) 18 U/L (15-37); Alanine Aminotransfer ALT/SGPT 34 U/L (16-61); Albumin, Serum 2.7 g/dL (3.2-5.0); Alkaline Phosphatase 79 U/L (45-117); Bilirubin, Direct 0.42 mg/dL (0.00-0.30); Globulin 2.8 g/dL (2.2-4.2); Protein, Total 5.5 g/dL (6.4-8.2)
--- NOTE | 2019-09-03 17:37 | CON.PCM_ITS ---
Problem List (1) Chest pain, unspecified Status: Acute Qualifiers: Chest pain type: unspecified Qualified Code(s): R07.9 - Chest pain, unspecified Reason for Consult Date of Consultation: 09/03/19 History of Present Illness: The patient is a 74 year old M who I have been asked to see to help assist with the diagnosis of chest pain. Been asked to see him by Dr. Kiara Powell and written copy of my surgical consult recommendations will be present in his chart. 74-year-old gentleman. He has had myelodysplastic disorder and is been treated by Dr. Dent for approximately 2 years. The patient states that he averages 1 to 2 units of blood transfusion per week. On the very rare occasion he will have a slight amount of blood on the tissue paper. He has never noticed any significant rectal bleeding. He denies any epigastric pain. He denies reflux symptoms. He has never been diagnosed with peptic ulcer disease. He has never had hematemesis. By his report it is been noted that he has been recently requiring more blood transfusions. Yesterday he received 2 units of blood for hemoglobin of 5.6 and today's hemoglobin is 6.1. However dating back for multiple months the highest hemoglobin he has had since June 23, 2019 was 7.8. As recently as July 02, 2019 his hemoglobin was 5.4. It is of additional note that his white blood cell count is only 0.5. Platelet count 179,000. His BUN is 24 and creatinine 0.77. Total bilirubin is 2.2. Direct bilirubin 0.42. AST 18. ALT 34. Alk phos a 79. Troponin is elevated at 0.121. PT is 16.9 with an INR of 1.4 The patient states today that he was going to a restaurant to have lunch. However prior to having anything to eat or drink he developed retrosternal chest pain. He did have than a few bites to eat. He states that he had some meat loaf and some fluid. He states he had absolutely no trouble in swallowing these. It did not aggravate his pain. He was not nauseated. I have records dating back to 2011 when he had a colonoscopy performed by Dr. Scar Saha demonstrating diverticulosis and hemorrhoids. Repeat colonoscopy recommended in 10 years Past Medical History Past Medical History (Chronic Problems): Chronic Problems (Last Reviewed 09/01/19 @ 10:15 by Regina Nieves) Anemia (Chronic) HTN (hypertension) (Chronic) A-fib (Chronic) MDS (myelodysplastic syndrome), low grade (Chronic) RA (refractory anemia) (Chronic) Hyperlipidemia (Chronic) Acute on chronic blood loss anemia (Chronic) Pancytopenia (Chronic) Medical History: Medical History (Last Reviewed 09/01/19 @ 10:15 by Regina Nieves) PORT PLACEMENT Abdominal aneurysm I71.4 Hyperlipidemia E78.5 Allergies No Known Allergies Allergy (Verified 09/03/19 13:07) Home Medications: Ambulatory Orders Medication Instructions Recorded Atenolol [Tenormin (beta clint)] 25 mg PO DAILY 08/15/17 Atorvastatin Calcium [Lipitor] 40 mg PO QHS 08/15/17 Warfarin [Coumadin] 3 mg PO DAILY 08/15/17 traMADol [Ultram (G)] 50 mg PO BID PRN PRN 11/01/17 Magic Mouth Wash 10 ml PO 4X/DAY #300 ml 09/01/19 Potassium Chloride 20 meq PO BID 09/03/19 Surgical History: Surgical History (Last Reviewed 09/01/19 @ 10:15 by Regina Nieves) H/O hernia repair Z98.890, Z87.19 History of arthroplasty of left knee Z96.652 Hx of cholecystectomy Z90.49 Surgical History: cholecystectomy, herniorrhaphy, total knee arthroplasty, - - power port placement Psychiatric History: No pertinent psych hx Lives: Spouse/ Significant Other, [facility] - [facility] [facility] Smoking Status: Former smoker Alcohol: None Drugs: None - *Family History Maternal Family History: Family History (Last Reviewed 09/01/19 @ 10:15 by Regina Nieves) Father CVA (cerebral vascular accident) Mother CVA (cerebral vascular accident) History Items: Stroke Paternal Family History: Family History (Last Reviewed 09/01/19 @ 10:15 by Regina Nieves) Father CVA (cerebral vascular accident) Mother CVA (cerebral vascular accident) History Items: Stroke Review of Systems Constitutional: Denies: Anorexia, Fever HEENT: Denies: Difficulty Swallowing, Dysphasia Cardiovascular: Reports: Chest Pain Respiratory: Denies: Cough, Hemoptysis, Shortness of Breath Gastrointestinal: Denies: Abdominal Pain, Melena Musculoskeletal: Denies: Leg Pain Endocrine: Denies: Change in Body Habitus Patient Problems: Active and Suspected Problems (Last Reviewed 09/01/19 @ 10:15 by Regina Nieves) Chemotherapy management, encounter for (Suspected) Encounter for education (Acute) Chest pain, unspecified (Acute) Neutropenia (Acute) - Physical Exam General: Alert, Oriented x3, Cooperative, No apparent distress HEENT: Atraumatic Oral: Moist Mucosa Neck: Supple Lungs: Clear to auscultation, Normal air movement, - - Right chest port in place Abdomen: Bowel Sounds Present, Soft, Non Tender, Non-Distended, No Hepato- splenomegaly Vital Signs Temp Pulse Resp BP Pulse Ox 98.8 F 62 15 125/95 H 99 09/03/19 13:07 09/03/19 16:15 09/03/19 16:05 09/03/19 16:15 09/03/19 16:05 Oxygen Delivery Method Room Air Weight: 198 lb 13.711 oz Body Mass Index (BMI) 28.5 Laboratory Tests Past 24 Hrs 09/03/19 09/03/19 09/03/19 14:03 14:03 14:03 WBC 0.5 L* RBC 2.11 L Hgb 6.1 L Hct 18.9 L MCV 89.6 MCH 28.9 MCHC 32.3 RDW Std Deviation 44.4 H RDW Coeff of Yamileth 14.0 Plt Count 179 MPV 11.2 Immature Gran % (Auto) 0.000 Neut % (Auto) 13.8 L Lymph % (Auto) 78.4 H [place] % (Auto) 3.9 Eos % (Auto) 3.9 Baso % (Auto) 0.0 Absolute Neuts (auto) 0.1 L Absolute Lymphs (auto) 0.40 L Nucleated RBC % 0 Differential Comment SCANNED Diff Path Review March foll PT 16.9 H INR 1.4 Sodium 139 Potassium 4.2 Chloride 107 Carbon Dioxide 28.0 Anion Gap 4 L BUN 24 H Creatinine 0.77 Estim Creat Clear Calc 64.89 Est GFR (MDRD) Af Amer 126 Est GFR (MDRD) Non-Af 104 BUN/Creatinine Ratio 31.0 H Glucose 155 H Calcium 8.2 L Total Bilirubin Direct Bilirubin AST ALT Alkaline Phosphatase Troponin I 0.121 H Total Protein Albumin Globulin Blood Type Antibody Screen Crossmatch 09/03/19 09/03/19 14:03 14:03 WBC RBC Hgb Hct MCV MCH MCHC RDW Std Deviation RDW Coeff of Yamileth Plt Count MPV Immature Gran % (Auto) Neut % (Auto) Lymph % (Auto) [place] % (Auto) Eos % (Auto) Baso % (Auto) Absolute Neuts (auto) Absolute Lymphs (auto) Nucleated RBC % Differential Comment Diff Path Review PT INR Sodium Potassium Chloride Carbon Dioxide Anion Gap BUN Creatinine Estim Creat Clear Calc Est GFR (MDRD) Af Amer Est GFR (MDRD) Non-Af BUN/Creatinine Ratio Glucose Calcium Total Bilirubin 2.20 H Direct Bilirubin 0.42 H AST 18 ALT 34 Alkaline Phosphatase 79 Troponin I Total Protein 5.5 L Albumin 2.7 L Globulin 2.8 Blood Type O POSITIVE Antibody Screen NEGATIVE Crossmatch See Detail Assessment/Plan All Active Problems (Last Reviewed 09/01/19 @ 10:15 by Regina Nieves) Encounter for education (Acute) Chest pain, unspecified (Acute) Neutropenia (Acute) 74-year-old gentleman with chronic anemia secondary to myelodysplastic disorder. His routine medications include along others tramadol and chronic Coumadin. His troponin is elevated. Chronic atrial fibrillation. At the moment he is not demonstrating findings of acute GI bleeding. I recommend consultation with Dr. Dent and cardiology. The patient will be treated medically. His Coumadin is being held. Will initiate PPI. At this point I will observe conservatively. I am not anticipating emergency endoscopy at this time. Appreciate the opportunity of assisting with his surgical care. Will await additional consults. Paco Goins M.D., F.A.C.S.
--- NOTE | 2019-09-03 18:55 | EKG12_ITS ---
Test Reason : CP ADMIT Blood Pressure : / mmHG Vent. Rate : 071 BPM Atrial Rate : 267 BPM P-R Int : 000 ms QRS Dur : 078 ms QT Int : 368 ms P-R-T Axes : 000 -43 023 degrees QTc Int : 399 ms Atrial fibrillation Left axis deviation Low voltage QRS Inferior infarct , age undetermined Abnormal ECG When compared with ECG of 03-SEP-2019 13:07, MANUAL COMPARISON REQUIRED, DATA IS UNCONFIRMED Confirmed by BASIM MARTINEZ, AMOR ([id number]), department editor ZOILA PIÑA ([id number] on 09/10/2019 10:15:42 AM Referred By: Kiara Powell Confirmed By:FREDERICK STALLWORTH MD
--- NOTE | 2019-09-03 18:55 | ECHOD_ITS ---
Reason For Study: CHEST PAIN Procedure This was a 2D Doppler, Color Flow transthoracic echocardiogram. Exam performed portable in patient room. Left Ventricle Normal LV size. The estimated ejection fraction is 35 %. There is evidence of diastolic dysfunction. Base of the LV is osvaldo well. Rest of the LV is akinetice. Consider Takotsubo CM could be considered in the differential. Right Ventricle Normal RV size. Normal systolic function. Atria The left atrium is severely enlarged. The right atrium is severely enlarged. No doppler evidence for ASD. Mitral Valve There is no mitral valve stenosis. Moderately severe (3+) mitral valve insufficiency. Tricuspid Valve There is no tricuspid stenosis. Moderate (2+) eccentric tricuspid valve insufficiency. Severe pulmonary hypertension. Pulmonary artery systolic pressure is 75 mmHg. Aortic Valve Trisinus/trileaflet aortic valve. There is no aortic stenosis. Mild (1+) aortic valve insufficiency. Pulmonic Valve There is no pulmonic valvular stenosis. Trivial pulmonic valve insufficiency. Great Vessels Normal aortic root. Pericardium/Pleural No pericardial effusion. MMode/2D Measurements & Calculations LVIDd: 5.0 cm IVSd: 1.1 cm Ao root diam: 4.9 cm LVIDs: 3.0 cm LVPWd: 1.2 cm RVDd: 5.1 cm FS: 40.7 % LAV(MOD-bp): 130.2 ml LVAd ap4: 37.8 cm2 SV(MOD-sp4): 65.0 ml LAV(MOD-bp) Indexed: 62.6 ml/m2 EDV(MOD-sp4): 131.2 ml LAV(MOD-sp2): 111.6 ml EDV(sp4-el): 141.7 ml LAV(MOD-sp4): 140.3 ml LVAs ap4: 26.0 cm2 ESV(MOD-sp4): 66.2 ml ESV(sp4-el): 70.9 ml EF(MOD-sp4): 49.5 % EF(sp4-el): 49.9 % SV(sp4-el): 70.7 ml LA A4 area: 35.3 cm2 LA dimension(2D): 5.8 cm RA A4 area: 32.2 cm2 Doppler Measurements & Calculations Ao V2 max: 130.8 cm/sec AI max yoanna: 314.0 cm/sec LV V1 max: 84.8 cm/sec Ao max P.9 mmHg AI max P.4 mmHg LV V1 max P.9 mmHg AI dec slope: 82.0 cm/sec2 AI P1/2t: 1122 msec PA V2 max: 118.1 cm/sec TR max yoanna: 378.9 cm/sec TR max P.7 mmHg Interpretation Summary The estimated ejection fraction is 35 %. There is evidence of diastolic dysfunction. Base of the LV is osvaldo well. Rest of the LV is akinetice. Consider Takotsubo CM could be considered in the differential. Moderate (2+) eccentric tricuspid valve insufficiency. Moderately severe (3+) mitral valve insufficiency. The left atrium is severely enlarged. The right atrium is severely enlarged. Severe pulmonary hypertension. Pulmonary artery systolic pressure is 75 mmHg. Mild (1+) aortic valve insufficiency. Ordering Physician: Kiara Powell Referring Physician: DANISH ALEXANDER CHI Performed By: Angelita Hameed RDCS, RVT
[2019-09-03 19:35] LABS: Magnesium 1.9 mg/dL (1.6-2.6); Phosphorus 3.9 mg/dL (2.5-4.9)
[2019-09-03] MEDS: Atorvastatin Calcium 40 MG Tablet PO (22:23)
[2019-09-03] MEDS: BMX LIQUID 180 ML 10 ML PO (22:24)
[2019-09-03] MEDS: Pantoprazole Sodium 40 MG Tablet PO (22:24)
[2019-09-03] MEDS: 0.9% NaCl VAD Flush IV (23:10)
[2019-09-04] VITALS (12 sets, daily range): BP systolic 99–118; BP diastolic 57–74; PULSE 50–82; RESP 16–18; TEMP 36.6–37.5; O2SAT 92–99
--- NOTE | 2019-09-04 00:12 | PCM.HOSP.N ---
Hospitalist Note Seen and examined. Nurse called me for high troponin. Earlier, afternoon patient was admitted with chest pain that started in the morning of day of admission and lasted until he was admitted. Chest pain midsternal in location felt like someone pushing on him. This is associated with shortness of breath with exertion, dizziness. Currently chest pain is resolved. No shortness of breath. EKG reviewed. Chronic A. fib. A. fib rate 71 bpm with low voltage QRS LAD. No significant ST-T changes. First troponin was 0.1-second is 5.0. Patient also has myelodysplastic syndrome and gets 1 to 2 units transfusion every week, follows Dr. Dent. He has also mild rectal bleed and seen by Dr. Goins. Hematology on consult. Public Address System Installer is also been consulted. Patient had 2 units of PRBC transfusion. Posttransfusion H&H pending. Admitting H&H 6.12/14. Public Address System Installer informed; waiting for callback Patient is not a candidate for antiplatelet/anticoagulant treatment in view of severe anemia with low dysplastic syndrome. On beta-jesenia atenolol and atorvastatin. Sublingual nitro as needed. Active Medications Acetaminophen (Tylenol) 650 mg PO Q6H PRN PRN PRN Reason: Non-cardiac pain (mod-severe) Hydrocodone Bitart/Acetaminophen ([place] 5mg-325mg) 1 - 2 tablet PO Q6H PRN PRN PRN Reason: Pain Score 4-10/10 Albuterol Sulfate (Ventolin Aerosols) 2.5 mg INHALATION Q2H PRN PRN PRN Reason: dyspnea, wheezing Atenolol (Tenormin (Beta Jesenia)) 25 mg PO DAILY [facility] Atorvastatin Calcium (Lipitor) 40 mg PO QHS [facility] Last Admin: 09/03/19 22:23 Dose: 40 mg Documented by: Dextrose (D50w Syringe) 0 gm IV X1 PRN; Protocol PRN Reason: Hypoglycemia Glucagon () 1 mg IM .X1 PRN PRN Reason: Hypoglycemia Heparin Sodium (Beef Lung) () 50 units IV UD PRN PRN Reason: HEPARIN FLUSH Hydralazine HCl (Apresoline Iv) 10 mg IV Q4H PRN PRN PRN Reason: SBP > 160 Sodium Chloride () 1,000 mls @ 100 mls/hr IV .Q10H [facility] Lidocaine/Diphenhydr/Alum/Mg/Simeth () 10 ml PO 4X/DAY [facility] Last Admin: 09/03/19 22:24 Dose: 10 ml Documented by: Melatonin (Melatonin) 3 mg PO QHS PRN PRN PRN Reason: INSOMNIA Morphine Sulfate () 1 - 2 mg IV Q4H PRN PRN PRN Reason: Pain Score 1-10/10 Nitroglycerin (Nitrostat) 0.4 mg SUBLINGUAL Q5M PRN PRN Reason: chest pain Last Admin: 09/03/19 16:15 Dose: 0.4 mg Documented by: Nitroglycerin (Nitrostat) 0.4 mg SUBLINGUAL Q5M PRN PRN Reason: CARDIAC/CHEST PAIN Ondansetron HCl (Zofran) 4 mg IV Q8H PRN PRN PRN Reason: NAUSEA/VOMITING Pantoprazole Sodium (Protonix) 40 mg PO DAILY [facility] Last Admin: 09/03/19 22:24 Dose: 40 mg Documented by: Potassium Chloride (K-Dur) 20 meq PO BIDCM [facility] Sodium Chloride () 10 - 40 ml IV UD PRN PRN Reason: VAD FLUSH Last Admin: 09/03/19 23:10 Dose: 20 ml Documented by: Laboratory Results 09/03/19 14:03: WBC 0.5 L*, RBC 2.11 L, Hgb 6.1 L, Hct 18.9 L, MCV 89.6, MCH 28.9, MCHC 32.3, RDW Std Deviation 44.4 H, RDW Coeff of Yamileth 14.0, Plt Count 179, MPV 11.2, Immature Gran % (Auto) 0.000, Neut % (Auto) 13.8 L, Lymph % (Auto) 78.4 H, [place] % (Auto) 3.9, Eos % (Auto) 3.9, Baso % (Auto) 0.0, Absolute Neuts (auto) 0.1 L, Absolute Lymphs (auto) 0.40 L, Nucleated RBC % 0, Differential Comment SCANNED, Diff Path Review March09/03/19 14:03: PT 16.9 H, INR 1.4 09/03/19 14:03: Sodium 139, Potassium 4.2, Chloride 107, Carbon Dioxide 28.0, Anion Gap 4 L, BUN 24 H, Creatinine 0.77, Estim Creat Clear Calc 64.89, Est GFR (MDRD) Af Amer 126, Est GFR (MDRD) Non-Af 104, BUN/Creatinine Ratio 31.0 H, Glucose 155 H, Calcium 8.2 L, Troponin I 0.121 H 09/03/19 14:03: Blood Type O POSITIVE, Antibody Screen NEGATIVE, Crossmatch See Detail 09/03/19 14:03: Total Bilirubin 2.20 H, Direct Bilirubin 0.42 H, AST 18, ALT 34, Alkaline Phosphatase 79, Total Protein 5.5 L, Albumin 2.7 L, Globulin 2.8 09/03/19 14:03: Phosphorus 3.9, Magnesium 1.9 09/03/19 23:05: Troponin I 5.000 H* Clinical Impression(s) from Imaging Studies Chest X-Ray 09/03/19 14:25 IMPRESSION: 1. A right IJ MediPort catheter in place. The tip of an pulmonary head is now at the junction of the right jugular vein and superior vena cava. 2. Some mild vascularity and interstitial crowding is seen in the lung bases bilaterally.
[2019-09-04] MEDS: 0.9% Normal Saline 1,000 ML 100 ML IV ×3 (00:21→20:02)
[2019-09-04] MEDS: 0.9% NaCl VAD Flush IV ×4 (01:47→04:54)
[2019-09-04 02:02] LABS: Hematocrit 22.5 % (40-54); Hemoglobin 7.4 g/dL (13.0-16.5)
[2019-09-04 05:08] LABS: Absolute Lymphocyte Count 0.41 X10^3/uL (0.83-4.51); Absolute Neutrophil Count 0.1 X10^3/uL (2.0-7.7); Eosinophil# 0.01 X10^3/uL; Eosinophils% 1.9 % (0-5); Hematocrit 20.5 % (40-54); Hemoglobin 6.7 g/dL (13.0-16.5); Lymphocyte # 0.41 X10^3/ul (4.0); Lymphocyte % 75.9 % (19-41); Mean Corp Hgb Conc 32.7 g/dL (32-36); Mean Corpuscular Hgb 28.9 pg (27.0-32.0); Mean Corpuscular Volume 88.4 fL (80-94); Mean Platelet Vol. 11.1 fl (6.2-12.0); Monocyte# 0.03 X10^3/uL; Monocyte% 5.6 % (0-10); NRBC Flagged by Analyzer 0 % (0-5); Neutrophil # 0.05 X10^3/uL (2.7-7.7); Neutrophil % 9.2 % (47-70); POSITIVE COUNT YES; POSITIVE DIFFERENTIAL YES; POSITIVE MORPHOLOGY YES; Platelet Count 176 K/mm3 (150-450); RBC Distribution Width CV 14.6 % (11.6-14.6); RBC Distribution Width SD 46.7 fl (35.1-43.9); Red Blood Count 2.32 M/mm3 (4.6-6.2)
[2019-09-04 05:14] LABS: Differential Indicated SCAN CRITERIA MET; White Blood Count 0.5 K/mm3 (4.4-11.0)
[2019-09-04 05:27] LABS: Anion Gap 5 (5-15); BUN 16 mg/dL (7-18); BUN/Creat Ratio 28.6 RATIO (10-20); Calcium,Total 7.7 mg/dL (8.5-10.1); Chloride 111 mmol/L (98-107); Cholesterol 86 mg/dL (200); Creatinine, Serum 0.56 mg/dL (0.70-1.30); EST Glomerular Filtration Rate 151 mL/min (>60); Est Glom Filt Rate - Afr Amer 183 mL/min (>60); Estimated Creatinine Clearance 64.89 ml/min; Glucose 89 mg/dL (74-106); High Density Lipoprotein 27 mg/dL; Potassium 4.3 mmol/L (3.5-5.1); Sodium Level 144 mmol/L (136-145); Triglycerides 67 mg/dL; Very Low Density Lipoprotein 13 mg/dL (5-40)
--- NOTE | 2019-09-04 05:55 | EKG12_ITS ---
Test Reason : AM EKG Blood Pressure : / mmHG Vent. Rate : 058 BPM Atrial Rate : 113 BPM P-R Int : 000 ms QRS Dur : 086 ms QT Int : 410 ms P-R-T Axes : 000 -38 017 degrees QTc Int : 402 ms Atrial fibrillation with slow ventricular response Left axis deviation Low voltage QRS Abnormal ECG When compared with ECG of 03-SEP-2019 20:42, MANUAL COMPARISON REQUIRED, DATA IS UNCONFIRMED Confirmed by BASIM MARTINEZ, AMOR ([id number]), development editor ZOILA PIÑA ([id number]) on 09/10/2019 10:12:51 AM Referred By: Kiara Powell Confirmed By:FREDERICK STALLWORTH MD
--- NOTE | 2019-09-04 06:11 | PCM.PN.SRG ---
Patient Problems: Active and Suspected Problems (Last Reviewed 09/01/19 @ 10:15 by Regina Nieves) Chemotherapy management, encounter for (Suspected) Encounter for education (Acute) Chest pain, unspecified (Acute) Neutropenia (Acute) Subjective: Pt states he has not moved his bowels since admission but brown stool is reported in nursing documentation? Pt states chest pain causing admission has ceased Troponin serial check demonstrated elevation - Physical Exam General: Alert, Oriented x3, Cooperative, No apparent distress Lungs: Clear to auscultation Abdomen: Bowel Sounds Present, Soft, Non Tender Vital Signs Temp Pulse Resp BP Pulse Ox 99.0 F 69 16 99/57 L 96 09/04/19 03:27 09/04/19 03:27 09/04/19 03:27 09/04/19 03:27 09/04/19 03:27 Oxygen Flow Rate (L/min) 2 Oxygen Delivery Method Room Air Weight: 198 lb 13.711 oz Body Mass Index (BMI) 28.5 Intake and Output for Last 24 Hours 09/02/19 09/03/19 09/04/19 23:59 23:59 23:59 Intake Total 1640 / 1640 400 / 400 Output Total 800 / 800 Balance 840 / 840 400 / 400 Laboratory Tests Past 24 Hrs 09/03/19 09/03/19 09/03/19 14:03 14:03 14:03 WBC 0.5 L* RBC 2.11 L Hgb 6.1 L Hct 18.9 L MCV 89.6 MCH 28.9 MCHC 32.3 RDW Std Deviation 44.4 H RDW Coeff of Yamileth 14.0 Plt Count 179 MPV 11.2 Immature Gran % (Auto) 0.000 Neut % (Auto) 13.8 L Lymph % (Auto) 78.4 H [place] % (Auto) 3.9 Eos % (Auto) 3.9 Baso % (Auto) 0.0 Absolute Neuts (auto) 0.1 L Absolute Lymphs (auto) 0.40 L Nucleated RBC % 0 Differential Comment SCANNED Diff Path Review March PT 16.9 H INR 1.4 Sodium 139 Potassium 4.2 Chloride 107 Carbon Dioxide 28.0 Anion Gap 4 L BUN 24 H Creatinine 0.77 Estim Creat Clear Calc 64.89 Est GFR (MDRD) Af Amer 126 Est GFR (MDRD) Non-Af 104 BUN/Creatinine Ratio 31.0 H Glucose 155 H Calcium 8.2 L Phosphorus Magnesium Total Bilirubin Direct Bilirubin AST ALT Alkaline Phosphatase Troponin I 0.121 H Total Protein Albumin Globulin Triglycerides Cholesterol LDL Cholesterol VLDL Cholesterol HDL Cholesterol Blood Type Antibody Screen Crossmatch 09/03/19 09/03/19 09/03/19 14:03 14:03 14:03 WBC RBC Hgb Hct MCV MCH MCHC RDW Std Deviation RDW Coeff of Yamileth Plt Count MPV Immature Gran % (Auto) Neut % (Auto) Lymph % (Auto) [place] % (Auto) Eos % (Auto) Baso % (Auto) Absolute Neuts (auto) Absolute Lymphs (auto) Nucleated RBC % Differential Comment Diff Path Review PT INR Sodium Potassium Chloride Carbon Dioxide Anion Gap BUN Creatinine Estim Creat Clear Calc Est GFR (MDRD) Af Amer Est GFR (MDRD) Non-Af BUN/Creatinine Ratio Glucose Calcium Phosphorus 3.9 Magnesium 1.9 Total Bilirubin 2.20 H Direct Bilirubin 0.42 H AST 18 ALT 34 Alkaline Phosphatase 79 Troponin I Total Protein 5.5 L Albumin 2.7 L Globulin 2.8 Triglycerides Cholesterol LDL Cholesterol VLDL Cholesterol HDL Cholesterol Blood Type O POSITIVE Antibody Screen NEGATIVE Crossmatch See Detail 09/03/19 09/04/19 09/04/19 23:05 01:40 01:40 WBC RBC Hgb 7.4 L Hct 22.5 L MCV MCH MCHC RDW Std Deviation RDW Coeff of Yamileth Plt Count MPV Immature Gran % (Auto) Neut % (Auto) Lymph % (Auto) [place] % (Auto) Eos % (Auto) Baso % (Auto) Absolute Neuts (auto) Absolute Lymphs (auto) Nucleated RBC % Differential Comment Diff Path Review PT INR Sodium Potassium Chloride Carbon Dioxide Anion Gap BUN Creatinine Estim Creat Clear Calc Est GFR (MDRD) Af Amer Est GFR (MDRD) Non-Af BUN/Creatinine Ratio Glucose Calcium Phosphorus Magnesium Total Bilirubin Direct Bilirubin AST ALT Alkaline Phosphatase Troponin I 5.000 H* 5.430 H* Total Protein Albumin Globulin Triglycerides Cholesterol LDL Cholesterol VLDL Cholesterol HDL Cholesterol Blood Type Antibody Screen Crossmatch 09/04/19 09/04/19 09/04/19 04:50 04:50 04:50 WBC 0.5 L* RBC 2.32 L Hgb 6.7 L Hct 20.5 L MCV 88.4 MCH 28.9 MCHC 32.7 RDW Std Deviation 46.7 H RDW Coeff of Yamileth 14.6 Plt Count 176 MPV 11.1 Immature Gran % (Auto) 7.400 H Neut % (Auto) 9.2 L Lymph % (Auto) 75.9 H [place] % (Auto) 5.6 Eos % (Auto) 1.9 Baso % (Auto) 0.0 Absolute Neuts (auto) 0.1 L Absolute Lymphs (auto) 0.41 L Nucleated RBC % 0 Differential Comment Diff Path Review May foll PT INR Sodium 144 Potassium 4.3 Chloride 111 H Carbon Dioxide 28.0 Anion Gap 5 BUN 16 Creatinine 0.56 L Estim Creat Clear Calc 64.89 Est GFR (MDRD) Af Amer 183 Est GFR (MDRD) Non-Af 151 BUN/Creatinine Ratio 28.6 H Glucose 89 Calcium 7.7 L Phosphorus Magnesium Total Bilirubin Direct Bilirubin AST ALT Alkaline Phosphatase Troponin I 4.620 H* Total Protein Albumin Globulin Triglycerides 67 Cholesterol 86 LDL Cholesterol 46 VLDL Cholesterol 13 HDL Cholesterol 27 L Blood Type Antibody Screen Crossmatch Medical Necessity - Tobacco Use Smoking Status: Former smoker Assessment/Plan All Active Problems (Last Reviewed 09/01/19 @ 10:15 by Regina Nieves) Encounter for education (Acute) Chest pain, unspecified (Acute) Neutropenia (Acute) Marked neutropenia Hgb 6.7 Pt denies stool? Will await cardiology and hematology recommendations I am not seeing an indication for emergency endoscopy at this moment
--- NOTE | 2019-09-04 09:15 | CON.PCM_ITS ---
<Scott Ospina - Last Filed: 09/04/19 10:31> Problem List (1) Non-ST elevated myocardial infarction (non-STEMI) Status: Acute (2) HTN (hypertension) Status: Chronic (3) A-fib Status: Chronic (4) MDS (myelodysplastic syndrome), low grade Status: Chronic (5) Hyperlipidemia Status: Chronic Reason for Consult Date of Consultation: 09/04/19 Reason for Consultation: Atrial fibrillation, chest pain, elevated troponin History of Present Illness: The patient is a 74 year old M who presented to [facility] emerged from 09/03/2019 for ongoing chest pain, jaw pain, neck pain, and arm pain. He has a past medical history of paroxysmal atrial fibrillation, hypertension, hyperlipidemia, myelodysplastic syndrome with chemotherapy in which he follows with Dr. Dent, and anemia. Patient states that he was at a restaurant and eating and noted pressure sensation in the center of his chest that radiated to his back. This was not associated with shortness of breath, nausea, vomiting, or diaphoresis. His emergency department evaluation revealed controlled atrial fibrillation without acute ST changes, hemoglobin 6.1, and troponin of 0.121. His chest x-ray revealed vascular crowding. Patient received 2 units of packed red blood cells on 09/02/2019. Patient was admitted for further evaluation. General surgery was consulted and conservative management was recommended. Patient developed similar chest pain early in the morning on 09/04/2019. He states it feels similar chest pain to discomfort in which she presented to the emergency department. This resolved on its own. His EKG at that time did not reveal any ST or T wave changes. He remained in atrial fibrillation. His troponin trend has been 0.121, 5, 5.43, and 4.62. Cardiology was consulted for further recommendation regarding elevated troponin. Past Medical History Allergies/Adverse Reactions: Allergies No Known Allergies Allergy (Verified 09/03/19 13:07) Home Medications: Ambulatory Orders Medication Instructions Recorded Atenolol [Tenormin (beta clint)] 25 mg PO DAILY 08/15/17 Atorvastatin Calcium [Lipitor] 40 mg PO QHS 08/15/17 Warfarin [Coumadin] 3 mg PO DAILY 08/15/17 traMADol [Ultram (G)] 50 mg PO BID PRN PRN 11/01/17 Magic Mouth Wash 10 ml PO 4X/DAY #300 ml 09/01/19 Potassium Chloride 20 meq PO BID 09/03/19 Past Medical History (Chronic Problems): Chronic Problems (Last Reviewed 09/01/19 @ 10:15 by Regina Nieves) Anemia (Chronic) HTN (hypertension) (Chronic) A-fib (Chronic) MDS (myelodysplastic syndrome), low grade (Chronic) RA (refractory anemia) (Chronic) Hyperlipidemia (Chronic) Acute on chronic blood loss anemia (Chronic) Pancytopenia (Chronic) Surgical History: cholecystectomy, herniorrhaphy, total knee arthroplasty, - - power port placement Psychiatric History: No pertinent psych hx - *Family History Maternal Family History: Family History (Last Reviewed 09/01/19 @ 10:15 by Regina Nieves) Father CVA (cerebral vascular accident) Mother CVA (cerebral vascular accident) History Items: Stroke Paternal Family History: Family History (Last Reviewed 09/01/19 @ 10:15 by Regina Nieves) Father CVA (cerebral vascular accident) Mother CVA (cerebral vascular accident) History Items: Stroke Lives: Spouse/ Significant Other, Retirement - skilled nursing Smoking Status: Former smoker Alcohol: None Drugs: None Review of Systems - Review of Systems General: Denies: Fever, Fatigue, Malaise HEENT: Denies: Vision Change Cardiovascular: Denies: Chest Discomfort, Chest Discomfort at Rest, Chest Discomfort with Exertion, Chest Pressure, Chest Tightness, Chest Heaviness, Shortness of Breath, Shortness of Breath at Rest, Shortness of Breath with Exertion, Orthopnea, PND, Peripheral Edema, Palpitations, Lightheadedness, Dizziness, Near Syncope, Syncope Respiratory: Denies: Cough Neurological: Denies: Dizziness Subjectve: Patient seen and evaluated. He denies any current chest pain, shortness of breath, orthopnea, PND, or bilateral lower extremity edema. Objective: Vital Signs Temp Pulse Resp BP Pulse Ox 99.0 F 52 L 16 99/57 L 96 09/04/19 03:27 09/04/19 07:34 09/04/19 03:27 09/04/19 03:27 09/04/19 03:27 Oxygen Flow Rate (L/min) 2 Oxygen Delivery Method Room Air Weight: 198 lb 13.711 oz Body Mass Index (BMI) 28.5 Intake and Output for Last 24 Hours 09/02/19 09/03/1919 23:59 23:59 23:59 Intake Total 1640 / 1640 400 / 400 Output Total 800 / 800 700 / 700 Balance 840 / 840 -300 / -300 General: Healthy Appearing, Awake, Alert, Oriented x 3, Cooperative, No Acute Distress HEENT: Atraumatic Neck: No JVD Lungs: Clear to auscultation Cardiovascular: Irregular Rhythm, Normal S1, Normal S2, No Murmurs, No Rubs, No Gallops Vascular: No Carotid Bruits Abdomen: Bowel Sounds Present, Soft Neurological: No Focal Motor or Sensory Deficit Psych/Mental Status: Appropriate 09/03/19 14:03: WBC 0.5 L*, RBC 2.11 L, Hgb 6.1 L, Hct 18.9 L, MCV 89.6, MCH 28. 9, MCHC 32.3, Plt Count 179, MPV 11.2, Immature Gran % (Auto) 0.000, Neut % (Auto) 13.8 L, Lymph % (Auto) 78.4 H, [place] % (Auto) 3.9, Eos % (Auto) 3.9, Baso % (Auto) 0.0, Absolute Neuts (auto) 0.1 L, Nucleated RBC % 0 09/03/19 14:03: PT 16.9 H, INR 1.4 09/03/19 14:03: Sodium 139, Potassium 4.2, Chloride 107, Carbon Dioxide 28.0, Anion Gap 4 L, BUN 24 H, Creatinine 0.77, Est GFR (MDRD) Af Amer 126, Est GFR (MDRD) Non-Af 104, BUN/Creatinine Ratio 31.0 H, Glucose 155 H, Calcium 8.2 L, Troponin I 0.121 H 09/03/19 14:03: Total Bilirubin 2.20 H, Direct Bilirubin 0.42 H 09/03/19 14:03: Phosphorus 3.9, Magnesium 1.9 09/03/19 23:05: Troponin I 5.000 H* 09/04/19 01:40: Hgb 7.4 L, Hct 22.5 L 09/04/19 01:40: Troponin I 5.430 H* 09/04/19 04:50: Sodium 144, Potassium 4.3, Chloride 111 H, Carbon Dioxide 28.0, Anion Gap 5, BUN 16, Creatinine 0.56 L, Est GFR (MDRD) Af Amer 183, Est GFR (MDRD) Non-Af 151, BUN/Creatinine Ratio 28.6 H, Glucose 89, Calcium 7.7 L, Triglycerides 67, Cholesterol 86, LDL Cholesterol 46, VLDL Cholesterol 13, HDL Cholesterol 27 L 09/04/19 04:50: WBC 0.5 L*, RBC 2.32 L, Hgb 6.7 L, Hct 20.5 L, MCV 88.4, MCH 28.9, MCHC 32.7, Plt Count 176, MPV 11.1, Immature Gran % (Auto) 7.400 H, Neut % (Auto) 9.2 L, Lymph % (Auto) 75.9 H, [place] % (Auto) 5.6, Eos % (Auto) 1.9, Baso % (Auto) 0.0, Absolute Neuts (auto) 0.1 L, Nucleated RBC % 0 09/04/19 04:50: Troponin I 4.620 H* Rhythm: EKG: ECHO: Stress Test: Cardiac Cath: PCI: CT Surgery: Holter monitor: EPS: PPM: CXR: Chest CT Scan: Assessment/Plan 1. Non-ST Elevated Myocardial Infarction At this time, patient is currently chest pain-free. His cardiac enzymes/troponin did increase with peak at 5. He does have risk factors for coronary artery disease with hypertension and hyperlipidemia. He denies any current diabetes history and his smoking history was greater than 40 years ago. His discomfort and laboratory work changes are attributed to his low hemoglobin and a type II/demand mismatch CT. He will proceed with echocardiogram to help evaluate coronary artery disease component further. This will include evaluation with his LVEF and wall motion. If further invasive testing is recommended based on echocardiogram results, patient is very hesitant to proceed, which is very reasonable. Input from his oncology team will be greatly appreciated. Given his history of myelodysplastic syndrome antiplatelet therapy is not recommended at this time. If his EF is low, we can consider diuretics during PRBCs transfusion to better avoid fluid volume overload. 2. Atrial Fibrillation Patient's EKG and telemetry continues to show atrial fibrillation with controlled response. He has had transient lower heart rates into the 40s-50s. He is asymptomatic with such heart rates. He will continue with current beta- clint. His heart rate will be monitored closely and medication adjustment will be ongoing. He was on Coumadin prior to admission. This will need to be addressed prior to discharge with input from general surgery, primary care team, and oncology team. At this time, we will continue to follow. 3. Hypertension Patient's blood pressure is well-controlled. We will continue to monitor. We will not make any medication regimen changes. 4. Hyperlipidemia He acknowledges this has been monitored by his primary care physician. He will continue with current statin medication. This will be followed on an outpatient basis. Patient's case was discussed further with Dr. Trinidad, who will also personally evaluate patient. Thank you for allowing us to participate in the patients plan of care, if you have any questions please do not hesitate to call. This note was generated using a voice recognition system and there may be incorrect words, spelling or punctuation that were not noted when reviewing the office note prior to saving. <Renae Trinidad - Last Filed: 09/04/19 13:50> Reason for Consult History of Present Illness: The patient is a 74 year old M [] Past Medical History - *Family History Maternal Family History: Family History (Last Reviewed 09/01/19 @ 10:15 by Regina Nieves) Father CVA (cerebral vascular accident) Mother CVA (cerebral vascular accident) Paternal Family History: Family History (Last Reviewed 09/01/19 @ 10:15 by Regina Nieves) Father CVA (cerebral vascular accident) Mother CVA (cerebral vascular accident) Objective: Vital Signs Temp Pulse Resp BP Pulse Ox 97.8 F 70 18 107/64 97 09/04/19 09:25 09/04/19 09:25 09/04/19 09:25 09/04/19 09:25 09/04/19 13:00 Oxygen Flow Rate (L/min) 2 Oxygen Delivery Method Room Air Weight: 198 lb 13.711 oz Body Mass Index (BMI) 28.5 Intake and Output for Last 24 Hours 09/02/19 09/03/19 09/04/19 23:59 23:59 23:59 Intake Total 1640 / 1640 1610 / 1610 Output Total 800 / 800 1150 / 1150 Balance 840 / 840 460 / 460 09/03/19 14:03: WBC 0.5 L*, RBC 2.11 L, Hgb 6.1 L, Hct 18.9 L, MCV 89.6, MCH 28.9, MCHC 32.3, Plt Count 179, MPV 11.2, Immature Gran % (Auto) 0.000, Neut % (Auto) 13.8 L, Lymph % (Auto) 78.4 H, [place] % (Auto) 3.9, Eos % (Auto) 3.9, Baso % (Auto) 0.0, Absolute Neuts (auto) 0.1 L, Nucleated RBC % 0 09/03/19 14:03: PT 16.9 H, INR 1.4 09/03/19 14:03: Sodium 139, Potassium 4.2, Chloride 107, Carbon Dioxide 28.0, A nion Gap 4 L, BUN 24 H, Creatinine 0.77, Est GFR (MDRD) Af Amer 126, Est GFR (MDRD) Non-Af 104, BUN/Creatinine Ratio 31.0 H, Glucose 155 H, Calcium 8.2 L, Troponin I 0.121 H 09/03/19 14:03: Total Bilirubin 2.20 H, Direct Bilirubin 0.42 H 09/03/19 14:03: Phosphorus 3.9, Magnesium 1.9 09/03/19 23:05: Troponin I 5.000 H* 09/04/19 01:40: Hgb 7.4 L, Hct 22.5 L 09/04/19 01:40: Troponin I 5.430 H* 09/04/19 04:50: Sodium 144, Potassium 4.3, Chloride 111 H, Carbon Dioxide 28.0, Anion Gap 5, BUN 16, Creatinine 0.56 L, Est GFR (MDRD) Af Amer 183, Est GFR (MDRD) Non-Af 151, BUN/Creatinine Ratio 28.6 H, Glucose 89, Calcium 7.7 L, Triglycerides 67, Cholesterol 86, LDL Cholesterol 46, VLDL Cholesterol 13, HDL Cholesterol 27 L 09/04/19 04:50: WBC 0.5 L*, RBC 2.32 L, Hgb 6.7 L, Hct 20.5 L, MCV 88.4, MCH 28.9, MCHC 32.7, Plt Count 176, MPV 11.1, Immature Gran % (Auto) 7.400 H, Neut % (Auto) 9.2 L, Lymph % (Auto) 75.9 H, [place] % (Auto) 5.6, Eos % (Auto) 1.9, Baso % (Auto) 0.0, Absolute Neuts (auto) 0.1 L, Nucleated RBC % 0 09/04/19 04:50: Troponin I 4.620 H* Rhythm: EKG: ECHO: Stress Test: Cardiac Cath: PCI: CT Surgery: Holter monitor: EPS: PPM: CXR: Chest CT Scan: Assessment/Plan Patient seen, evaluated and discussed with Scott Ospina APN. Please see Scott Ospina's consult for full details. In brief patient's CT and angina appear to be continued to demand supply mismatch from low hemoglobin with or without underlying coronary artery disease. At this point treating any underlying coronary artery disease will be very difficult because of ongoing issues with anemia and possible GI bleed which will make using antiplatelet agents difficult. If patient has refractory angina despite his hemoglobin being close to 8-9 then we will consider invasive work-up more as a palliative approach. At this point a 2D echo will be useful to guide transfusions and volume management as required. It will be reasonable to keep the patient on a beta-clint and a statin. No aspirin or other antiplatelet agents due to significant anemia and GI bleed on presentation.
[2019-09-04] MEDS: Pantoprazole Sodium 40 MG Tablet PO (10:09)
[2019-09-04] MEDS: BMX LIQUID 180 ML 10 ML PO ×4 (10:16→21:19)
[2019-09-04] MEDS: Atenolol 25 MG Tablet PO (11:45)
--- NOTE | 2019-09-04 12:15 | CASEMGMT ---
RN KELLY MACHINE I CUTTER CM to room to meet with patient for initial transition planning/care coordination assessment. RN KELLY introduced self and role at [facility]. Pt voices understanding and consents to assessment at this time. Pt resting in bed in no distress at this time. and son @ bedside. Pt is A/O at this time and answers all questions appropriately. Care providers, pharmacy, and demographics verified/updated at this time. PCP: Sylvester Specialists: Jailene--oncology Preferred Pharmacy: [facility] Insurance: [employer] [facility] Prescription Benefit: Yes Living Will/HPOA: Has both LW and HCPOA, who is his daughter, Analilia. Pt and made aware copies are not found on file @ [facility]. They state they will try and have copies brought in. LNOK: , 5 adult children Living Arrangements: Lives with in one-story home w/one step to enter. States is independent w/ADL's. and pt share home mgmt tasks. Transportation: Pt states drives self and states no transportation concerns at this time. also drives DME: States occasionally uses a cane. Pt states no need for further DME at this time. HHC/SNF: No history of either. Denies needs and no needs identified. Pt wishes to return home and states has no concerns with going home at time of discharge. CM to follow for any discharge planning/needs. Pt voices no further concerns/needs at this time. Advised pt to ask for CM if any further questions/concerns/needs arise. Voices understanding. PLAN: Home w/family support and discharge plans in place . PT/OT evals pending. Moraima TERRY RN, CM
--- NOTE | 2019-09-04 12:23 | PN_ITS ---
<Rosemarie Wolfe - Last Filed: 09/04/19 12:38> Patient Problems: Active and Suspected Problems (Last Reviewed 09/01/19 @ 10:15 by Regina Nieves) Chemotherapy management, encounter for (Suspected) Encounter for education (Acute) Chest pain, unspecified (Acute) Neutropenia (Acute) Non-ST elevated myocardial infarction (non-STEMI) (Acute) Subjective: Patient seen and examined. Denies further chest pain. Denies shortness of breath, dizziness, lightheadedness. No further diarrhea since admission. - Physical Exam General: Alert, Oriented x3, Cooperative HEENT: Atraumatic, PERRLA, EOMI, Normocephalic Neck: Supple, No JVD, Negative Carotid Bruits Lungs: Clear to auscultation, Normal air movement Cardiovascular: - - Atrial fibrillation, rate controlled Abdomen: Bowel Sounds Present, Soft, Non Tender Extremities: No clubbing, No cyanosis, No edema, Capillary Refill Less than 3 Seconds Skin: No rashes, No breakdown Musculoskeletal: No Tenderness to Palpation of Joints or Extremities Neurological: Cranial nerves II-XII grossly intact, Neuro grossly intact Psych/Mental Status: Normal Affect, Appropriate Vital Signs Temp Pulse Resp BP Pulse Ox 97.8 F 70 18 107/64 99 09/04/19 09:25 09/04/19 09:25 09/04/19 09:25 09/04/19 09:25 09/04/19 09:25 Oxygen Flow Rate (L/min) 2 Oxygen Delivery Method Room Air Weight: 198 lb 13.711 oz Body Mass Index (BMI) 28.5 Intake and Output for Last 24 Hours 09/02/19 09/03/19 09/04/19 23:59 23:59 23:59 Intake Total 1640 / 1640 1610 / 1610 Output Total 800 / 800 1150 / 1150 Balance 840 / 840 460 / 460 Laboratory Tests Past 24 Hrs 09/03/19 09/03/19 09/03/19 14:03 14:03 14:03 WBC 0.5 L* RBC 2.11 L Hgb 6.1 L Hct 18.9 L MCV 89.6 MCH 28.9 MCHC 32.3 RDW Std Deviation 44.4 H RDW Coeff of Yamileth 14.0 Plt Count 179 MPV 11.2 Immature Gran % (Auto) 0.000 Neut % (Auto) 13.8 L Lymph % (Auto) 78.4 H Humphreys % (Auto) 3.9 Eos % (Auto) 3.9 Baso % (Auto) 0.0 Absolute Neuts (auto) 0.1 L Absolute Lymphs (auto) 0.40 L Nucleated RBC % 0 Differential Comment SCANNED Diff Path Review March PT 16.9 H INR 1.4 Sodium 139 Potassium 4.2 Chloride 107 Carbon Dioxide 28.0 Anion Gap 4 L BUN 24 H Creatinine 0.77 Estim Creat Clear Calc 64.89 Est GFR (MDRD) Af Amer 126 Est GFR (MDRD) Non-Af 104 BUN/Creatinine Ratio 31.0 H Glucose 155 H Calcium 8.2 L Phosphorus Magnesium Total Bilirubin Direct Bilirubin AST ALT Alkaline Phosphatase Troponin I 0.121 H Total Protein Albumin Globulin Triglycerides Cholesterol LDL Cholesterol VLDL Cholesterol HDL Cholesterol Blood Type Antibody Screen Crossmatch 09/03/19 09/03/19 09/03/19 14:03 14:03 14:03 WBC RBC Hgb Hct MCV MCH MCHC RDW Std Deviation RDW Coeff of Yamileth Plt Count MPV Immature Gran % (Auto) Neut % (Auto) Lymph % (Auto) Humphreys % (Auto) Eos % (Auto) Baso % (Auto) Absolute Neuts (auto) Absolute Lymphs (auto) Nucleated RBC % Differential Comment Diff Path Review PT INR Sodium Potassium Chloride Carbon Dioxide Anion Gap BUN Creatinine Estim Creat Clear Calc Est GFR (MDRD) Af Amer Est GFR (MDRD) Non-Af BUN/Creatinine Ratio Glucose Calcium Phosphorus 3.9 Magnesium 1.9 Total Bilirubin 2.20 H Direct Bilirubin 0.42 H AST 18 ALT 34 Alkaline Phosphatase 79 Troponin I Total Protein 5.5 L Albumin 2.7 L Globulin 2.8 Triglycerides Cholesterol LDL Cholesterol VLDL Cholesterol HDL Cholesterol Blood Type O POSITIVE Antibody Screen NEGATIVE Crossmatch See Detail 09/03/19 09/04/19 09/04/19 23:05 01:40 01:40 WBC RBC Hgb 7.4 L Hct 22.5 L MCV MCH MCHC RDW Std Deviation RDW Coeff of Yamileth Plt Count MPV Immature Gran % (Auto) Neut % (Auto) Lymph % (Auto) Humphreys % (Auto) Eos % (Auto) Baso % (Auto) Absolute Neuts (auto) Absolute Lymphs (auto) Nucleated RBC % Differential Comment Diff Path Review PT INR Sodium Potassium Chloride Carbon Dioxide Anion Gap BUN Creatinine Estim Creat Clear Calc Est GFR (MDRD) Af Amer Est GFR (MDRD) Non-Af BUN/Creatinine Ratio Glucose Calcium Phosphorus Magnesium Total Bilirubin Direct Bilirubin AST ALT Alkaline Phosphatase Troponin I 5.000 H* 5.430 H* Total Protein Albumin Globulin Triglycerides Cholesterol LDL Cholesterol VLDL Cholesterol HDL Cholesterol Blood Type Antibody Screen Crossmatch 09/04/19 09/04/19 09/04/19 04:50 04:50 04:50 WBC 0.5 L* RBC 2.32 L Hgb 6.7 L Hct 20.5 L MCV 88.4 MCH 28.9 MCHC 32.7 RDW Std Deviation 46.7 H RDW Coeff of Yamileth 14.6 Plt Count 176 MPV 11.1 Immature Gran % (Auto) 7.400 H Neut % (Auto) 9.2 L Lymph % (Auto) 75.9 H Humphreys % (Auto) 5.6 Eos % (Auto) 1.9 Baso % (Auto) 0.0 Absolute Neuts (auto) 0.1 L Absolute Lymphs (auto) 0.41 L Nucleated RBC % 0 Differential Comment Diff Path Review May foll PT INR Sodium 144 Potassium 4.3 Chloride 111 H Carbon Dioxide 28.0 Anion Gap 5 BUN 16 Creatinine 0.56 L Estim Creat Clear Calc 64.89 Est GFR (MDRD) Af Amer 183 Est GFR (MDRD) Non-Af 151 BUN/Creatinine Ratio 28.6 H Glucose 89 Calcium 7.7 L Phosphorus Magnesium Total Bilirubin Direct Bilirubin AST ALT Alkaline Phosphatase Troponin I 4.620 H* Total Protein Albumin Globulin Triglycerides 67 Cholesterol 86 LDL Cholesterol 46 VLDL Cholesterol 13 HDL Cholesterol 27 L Blood Type Antibody Screen Crossmatch Medical Necessity - Tobacco Use Smoking Status: Former smoker Assessment/Plan All Active Problems (Last Reviewed 09/01/19 @ 10:15 by Regina Nieves) Encounter for education (Acute) Chest pain, unspecified (Acute) Neutropenia (Acute) Non-ST elevated myocardial infarction (non-STEMI) (Acute) 1. NSTEMI-cardiology consulted. No acute EKG changes. Echocardiogram ordered, pending. Further cardiac work-up pending echo results. 2. Acute on chronic anemia, secondary to MDS with chronic pancytopenia- Dr. Goins, general surgery consulted on admission. Unlikely to be GI bleed. Status post 2 units PRBC. Trend CBC. Oncology consulted. Patient currently receives weekly blood transfusions. 3. Chronic atrial fibrillation, episodes of bradycardia-cardiology following. Continue current atenolol regimen. Coumadin on hold given acute on chronic anemia. This will need reassessed prior to discharge. 4. Hypertension-stable, continue atenolol regimen. 5. Hyperlipidemia-continue statin regimen. 6. Diarrhea prior to admission-resolved. Suspect side effect of chemotherapy. DVT prophylaxis-SCDs This patient was seen by NAYELI Tejeda under the supervision of Dr. Rea. <Esau Rea - Last Filed: 09/04/19 12:58> - Physical Exam Vital Signs Temp Pulse Resp BP Pulse Ox 97.8 F 70 18 107/64 99 09/04/19 09:25 09/04/19 09:25 09/04/19 09:25 09/04/19 09:25 09/04/19 09:25 Oxygen Flow Rate (L/min) 2 Oxygen Delivery Method Room Air Weight: 90.2 kg Body Mass Index (BMI) 28.5 Intake and Output for Last 24 Hours 09/02/19 09/03/19 09/04/19 23:59 23:59 23:59 Intake Total 1640 / 1640 1610 / 1610 Output Total 800 / 800 1150 / 1150 Balance 840 / 840 460 / 460 Laboratory Tests Past 24 Hrs 09/03/19 09/03/19 09/03/19 14:03 14:03 14:03 WBC 0.5 L* RBC 2.11 L Hgb 6.1 L Hct 18.9 L MCV 89.6 MCH 28.9 MCHC 32.3 RDW Std Deviation 44.4 H RDW Coeff of Yamileth 14.0 Plt Count 179 MPV 11.2 Immature Gran % (Auto) 0.000 Neut % (Auto) 13.8 L Lymph % (Auto) 78.4 H Humphreys % (Auto) 3.9 Eos % (Auto) 3.9 Baso % (Auto) 0.0 Absolute Neuts (auto) 0.1 L Absolute Lymphs (auto) 0.40 L Nucleated RBC % 0 Differential Comment SCANNED Diff Path Review Reviewed PT 16.9 H INR 1.4 Sodium 139 Potassium 4.2 Chloride 107 Carbon Dioxide 28.0 Anion Gap 4 L BUN 24 H Creatinine 0.77 Estim Creat Clear Calc 64.89 Est GFR (MDRD) Af Amer 126 Est GFR (MDRD) Non-Af 104 BUN/Creatinine Ratio 31.0 H Glucose 155 H Calcium 8.2 L Phosphorus Magnesium Total Bilirubin Direct Bilirubin AST ALT Alkaline Phosphatase Troponin I 0.121 H Total Protein Albumin Globulin Triglycerides Cholesterol LDL Cholesterol VLDL Cholesterol HDL Cholesterol Blood Type Antibody Screen Crossmatch 09/03/19 09/03/19 09/03/19 14:03 14:03 14:03 WBC RBC Hgb Hct MCV MCH MCHC RDW Std Deviation RDW Coeff of Yamileth Plt Count MPV Immature Gran % (Auto) Neut % (Auto) Lymph % (Auto) Humphreys % (Auto) Eos % (Auto) Baso % (Auto) Absolute Neuts (auto) Absolute Lymphs (auto) Nucleated RBC % Differential Comment Diff Path Review PT INR Sodium Potassium Chloride Carbon Dioxide Anion Gap BUN Creatinine Estim Creat Clear Calc Est GFR (MDRD) Af Amer Est GFR (MDRD) Non-Af BUN/Creatinine Ratio Glucose Calcium Phosphorus 3.9 Magnesium 1.9 Total Bilirubin 2.20 H Direct Bilirubin 0.42 H AST 18 ALT 34 Alkaline Phosphatase 79 Troponin I Total Protein 5.5 L Albumin 2.7 L Globulin 2.8 Triglycerides Cholesterol LDL Cholesterol VLDL Cholesterol HDL Cholesterol Blood Type O POSITIVE Antibody Screen NEGATIVE Crossmatch See Detail 09/03/19 09/04/19 09/04/19 23:05 01:40 01:40 WBC RBC Hgb 7.4 L Hct 22.5 L MCV MCH MCHC RDW Std Deviation RDW Coeff of Yamileth Plt Count MPV Immature Gran % (Auto) Neut % (Auto) Lymph % (Auto) Humphreys % (Auto) Eos % (Auto) Baso % (Auto) Absolute Neuts (auto) Absolute Lymphs (auto) Nucleated RBC % Differential Comment Diff Path Review PT INR Sodium Potassium Chloride Carbon Dioxide Anion Gap BUN Creatinine Estim Creat Clear Calc Est GFR (MDRD) Af Amer Est GFR (MDRD) Non-Af BUN/Creatinine Ratio Glucose Calcium Phosphorus Magnesium Total Bilirubin Direct Bilirubin AST ALT Alkaline Phosphatase Troponin I 5.000 H* 5.430 H* Total Protein Albumin Globulin Triglycerides Cholesterol LDL Cholesterol VLDL Cholesterol HDL Cholesterol Blood Type Antibody Screen Crossmatch 09/04/19 09/04/19 09/04/19 04:50 04:50 04:50 WBC 0.5 L* RBC 2.32 L Hgb 6.7 L Hct 20.5 L MCV 88.4 MCH 28.9 MCHC 32.7 RDW Std Deviation 46.7 H RDW Coeff of Yamileth 14.6 Plt Count 176 MPV 11.1 Immature Gran % (Auto) 7.400 H Neut % (Auto) 9.2 L Lymph % (Auto) 75.9 H Humphreys % (Auto) 5.6 Eos % (Auto) 1.9 Baso % (Auto) 0.0 Absolute Neuts (auto) 0.1 L Absolute Lymphs (auto) 0.41 L Nucleated RBC % 0 Differential Comment Diff Path Review Reviewed PT INR Sodium 144 Potassium 4.3 Chloride 111 H Carbon Dioxide 28.0 Anion Gap 5 BUN 16 Creatinine 0.56 L Estim Creat Clear Calc 64.89 Est GFR (MDRD) Af Amer 183 Est GFR (MDRD) Non-Af 151 BUN/Creatinine Ratio 28.6 H Glucose 89 Calcium 7.7 L Phosphorus Magnesium Total Bilirubin Direct Bilirubin AST ALT Alkaline Phosphatase Troponin I 4.620 H* Total Protein Albumin Globulin Triglycerides 67 Cholesterol 86 LDL Cholesterol 46 VLDL Cholesterol 13 HDL Cholesterol 27 L Blood Type Antibody Screen Crossmatch Assessment/Plan This patient was seen in conjunction with NAYELI Tejeda . I have independently interviewed and examined the patient and reviewed pertinent historical, laboratory, and other data. Please refer to NAYELI Tejeda note for details of this patient's presentation, findings, and recommendations. I have reviewed NAYELI Tejeda note and concur with documented findings. In brief, patient is a 74-year-old gentleman with history of myelodysplastic syndrome who presented with chest discomfort. Found to have elevated troponin admitted to monitored bed for further management Physical Examination: Assessment: 1. Acute non-STEMI 2. Anemia secondary to myelodysplastic syndrome 3. Chemo induced neutropenia 4. Chronic A. fib with episodes of bradycardia 5. Hypertension 6. Dyslipidemia Recommendations: 1. I have discussed the results of my overview and impressions with the patient 2. Options for management were reviewed Code Visit Inpatient E&M: 13721 Subs Hosp L3
--- NOTE | 2019-09-04 12:26 | ONC.CONS.INP ---
Consult Referring Physician: Oziel Stone Consult Results: MDS with low Hemoglobin. 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 Has been treated with Vidaza, responded for some time then required more transfusions. Therapy was changed to Revlimid with no response so it was discontinued on July 23, 2019. He was started on decitabine on August 11, 2019. He developed chest pain, epigastric discomfort yesterday came into the hospital and was diagnosed with non-ST myocardial infarction. He is feeling much better today with no recurrence of chest pain. 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) Hyperlipidemia (Chronic) Acute on chronic blood loss anemia (Chronic) Pancytopenia (Chronic) Past Medical/Surgical History: Past Medical History - Most Recent Inpatient Visit Past Medical History Start: 09/03/19 16:21 Text: Status: Complete Freq: Protocol: Document 09/03/19 16:21 [facility] [place] (Rec: 09/03/19 16:36 [facility] [place] [id number]) BMI Required to complete PMH What is Patient's BMI 29.3 Past Medical History Unable History Recalled No Query Text:Pt Unable/Family Not Present Neurologic Medical History Hx Stroke/TIA No Hx Dementia/Alzheimer's No Hx Parkinson's Disease No Hx Seizures No Hx Multiple Sclerosis No Cardiac Medical History VTE Present on Admission No Hx of Deep Vein Thrombosis/VTE/PE No Hx Hypertension Yes: controlled with med Hx Chest Pain/Angina Yes Hx Heart Attack No Hx Cardiac Surgery/Stents/Etc. No Hx Heart Failure No Hx Pacemaker/AICD No Hx Irregular Heartbeat and/or Afib Yes: a-fib Hx Anticoagulant Therapy Yes: coumadin Query Text:(Coumadin, Aspirin, Plavix, Xarelto, etc.) Hx Pain in Legs when Walking/Leg Cramps Yes: right knee pain Respiratory Medical History Hx COPD No Hx Emphysema No Hx Smoking Yes: quit smoking pipe 25 yrs ago/4-5 yrs smoked pipe Smoking Status Former smoker Hx Tobacco Use in last 12 months No Hx Sleep Apnea Yes CPAP No BIPAP No STOP Results Positive GI Medical History Hx Ulcer No Hx Hepatitis No Hx Cirrhosis No Hx GI Bleed No Hx Unplanned Weight Loss No Genitourinary Medical History Indwelling Catheter in Place on Arrival/ No Admission Hx Renal Disease No Hx Dialysis No Musculoskeletal History Hx Arthritis Yes Hx Rheumatoid Arthritis No Endocrine Medical History Hx Diabetes No Hx Thyroid Disease No Hematologic Medical History Hx of Blood Transfusion Yes Hx of Transfusion in last 3 Months Yes Date of Last Transfusion (if within last 09-02-2019 3 months) Ever experience any problems with No transfusion(s)? Hx of Preganancy in last 3 Months N/A Nurse Filling Out Transfusion & SGESSEL Questions: Date: 09/03/19 Time: 16:22 Psycho/Social Medical History Hx Depression No Hx Anxiety No Hx Behavior Disorder No Hx Alcohol Use No Hx Substance Use No Other Medical History Hx Blood Disorders Yes Hx Anemia Yes Hx Cancer Yes: mds-receives chemotherapy last approx 2 weeks ago Hx Drug Resistant Organism No Wound/Pressure Injury Present on Arrival No: to be assessed per primary /Admission rn Query Text:If yes, chart assessment in Shift/Clinical Findings Central Line/PICC/VAD Present on Arrival Yes /Admission Antibiotics within last 7 days? No Risk for Readmission Number of Risk Factors 6 At Risk for Readmission Patient is At Risk For Readmission Patient is eligible for Call Back Y Past Medical History (Last Reviewed 09/01/19 @ 10:15 by Regina Nieves) PORT PLACEMENT (Acute) Abdominal aneurysm (Acute) Hyperlipidemia (Acute) Past Surgical History (Last Reviewed 09/01/19 @ 10:15 by Regina Nieves) H/O hernia repair (Acute) History of arthroplasty of left knee (Acute) Hx of cholecystectomy (Acute) Maternal Family History: Family History (Last Reviewed 09/01/19 @ 10:15 by Regina Nieves) Father CVA (cerebral vascular accident) Mother CVA (cerebral vascular accident) Family History: Stroke Paternal Family History: Family History (Last Reviewed 09/01/19 @ 10:15 by Regina Nieves) Father CVA (cerebral vascular accident) Mother CVA (cerebral vascular accident) Family History: Stroke - Social History Lives: Spouse/ Significant Other, Fdc - care home Smoking Status: Former smoker Alcohol: None Drugs: None Allergies/Adverse Reactions: Allergy/AdvReac Type Severity Reaction Status Date / Time No Known Allergies Allergy Verified 09/03/19 13:07 Review of Systems Constitutional:: Reports: Weakness, Fatigue. Denies: Fever, Sweats Cardiovascular:: Denies: Chest pain, Palpitations, Dyspnea on exertion, Orthopnea, PND, Shortness of breath Respiratory: Denies: Cough, Hemoptysis, Shortness of Breath, Wheezing Gastrointestinal:: Denies: Abdominal pain, Nausea, Vomiting, Diarrhea, Constipation, Hematochezia Genitourinary: Denies: Dysuria, Hematuria, 15, Flank pain Musculoskeletal:: Denies: Back pain, Myalgia, Arthralgia Skin: Denies: Rash, Skin Changes, Wounds Neurological:: Denies: Headache, Dizziness, Visual changes, Tinnitus, Hearing loss Psychiatric: Denies: Anxiety, Depression, Homicidal Ideations, Suicidal Ideations Vital Signs Height 5 ft 10 in Weight: 90.2 kg Weight in Pounds 198.9 lbs Pulse Ox 99 Temperature 97.8 F Pulse Rate 70 Respiratory Rate 18 Blood Pressure [BP] 123/68 Blood Pressure 107/64 Blood Pressure Position [BP] Semi-Fowlers Blood Pressure Position Semi-Fowlers - Physical Exam General: Alert, Oriented x3, No apparent distress HEENT: Atraumatic, PERRLA, EOMI, Normocephalic Oropharynx:: Dry mucosa Neck:: Supple, Trachea midline. Negative for: JVD, bilateral Cardiac:: Normal S1, Normal S2, Irregular rate. Negative for: Murmur Lungs: Clear to auscultation, Excusion symmetrical. Negative for: Rhonchi, Wheezes Abdomen:: Bowel sounds x 4, Soft, Non-tender, Non-distended. Negative for: Hepatosplenomegaly Extremities:: Negative for: Cyanosis, Edema Neurological: Neuro grossly intact Skin:: Negative for: Lesions, Rash, Petechiae, Ecchymosis Psychiatric:: Appropriate affect, Euthymic Lymphatics:: Negative for: Cervical lymphadenopathy, Supraclavicular lymphadenopathy, Axillary lymphadenopathy Laboratory Data: Laboratory Tests 09/04/19 09/04/19 09/04/19 Range/Units 04:50 04:50 04:50 WBC 0.5 L* (4.4-11.0) K/mm3 RBC 2.32 L (4.6-6.2) M/mm3 Hgb 6.7 L (13.0-16.5) g/dL Hct 20.5 L (40-54) % MCV 88.4 (80-94) fL MCH 28.9 (27.0-32.0) pg MCHC 32.7 (32-36) g/dL RDW Std Deviation 46.7 H (35.1-43.9) fl RDW Coeff of Yamileth 14.6 (11.6-14.6) % Plt Count 176 (150-450) K/mm3 MPV 11.1 (6.2-12.0) fl Immature Gran % (Auto) 7.400 H (0.0-0.9) % Neut % (Auto) 9.2 L (47-70) % Lymph % (Auto) 75.9 H (19-41) % [place] % (Auto) 5.6 (0-10) % Eos % (Auto) 1.9 (0-5) % Baso % (Auto) 0.0 (0-1) % Absolute Neuts (auto) 0.1 L (2.0-7.7) X10^3/uL Absolute Lymphs (auto) 0.41 L (0.83-4.51) X10^3/uL Nucleated RBC % 0 (0-5) % Differential Comment Diff Path Review May foll PT (11.7-14.9) SECONDS INR Sodium 144 (136-145) mmol/L Potassium 4.3 (3.5-5.1) mmol/L Chloride 111 H (98-107) mmol/L Carbon Dioxide 28.0 (21.0-32.0) mmol/L Anion Gap 5 (5-15) BUN 16 (7-18) mg/dL Creatinine 0.56 L (0.70-1.30) mg/dL Estim Creat Clear Calc 64.89 ml/min Est GFR (MDRD) Af Amer 183 (>60) mL/min Est GFR (MDRD) Non-Af 151 (>60) mL/min BUN/Creatinine Ratio 28.6 H (10-20) RATIO Glucose 89 (74-106) mg/dL Calcium 7.7 L (8.5-10.1) mg/dL Phosphorus (2.5-4.9) mg/dL Magnesium (1.6-2.6) mg/dL Total Bilirubin (0.20-1.00) mg/dL Direct Bilirubin (0.00-0.30) mg/dL AST (15-37) U/L ALT (16-61) U/L Alkaline Phosphatase (45-117) U/L Troponin I 4.620 H* (<0.045) ng/mL Total Protein (6.4-8.2) g/dL Albumin (3.2-5.0) g/dL Globulin (2.2-4.2) g/dL Triglycerides 67 ( - 199) mg/dL Cholesterol 86 (200) mg/dL LDL Cholesterol 46 (0-130) mg/dL VLDL Cholesterol 13 (5-40) mg/dL HDL Cholesterol 27 L (40 - ) mg/dL Blood Type Antibody Screen Crossmatch 09/04/19 09/04/19 09/03/19 Range/Units 01:40 01:40 23:05 WBC (4.4-11.0) K/mm3 RBC (4.6-6.2) M/mm3 Hgb 7.4 L (13.0-16.5) g/dL Hct 22.5 L (40-54) % MCV (80-94) fL MCH (27.0-32.0) pg MCHC (32-36) g/dL RDW Std Deviation (35.1-43.9) fl RDW Coeff of Yamileth (11.6-14.6) % Plt Count (150-450) K/mm3 MPV (6.2-12.0) fl Immature Gran % (Auto) (0.0-0.9) % Neut % (Auto) (47-70) % Lymph % (Auto) (19-41) % [place] % (Auto) (0-10) % Eos % (Auto) (0-5) % Baso % (Auto) (0-1) % Absolute Neuts (auto) (2.0-7.7) X10^3/uL Absolute Lymphs (auto) (0.83-4.51) X10^3/uL Nucleated RBC % (0-5) % Differential Comment Diff Path Review PT (11.7-14.9) SECONDS INR Sodium (136-145) mmol/L Potassium (3.5-5.1) mmol/L Chloride (98-107) mmol/L Carbon Dioxide (21.0-32.0) mmol/L Anion Gap (5-15) BUN (7-18) mg/dL Creatinine (0.70-1.30) mg/dL Estim Creat Clear Calc ml/min Est GFR (MDRD) Af Amer (>60) mL/min Est GFR (MDRD) Non-Af (>60) mL/min BUN/Creatinine Ratio (10-20) RATIO Glucose (74-106) mg/dL Calcium (8.5-10.1) mg/dL Phosphorus (2.5-4.9) mg/dL Magnesium (1.6-2.6) mg/dL Total Bilirubin (0.20-1.00) mg/dL Direct Bilirubin (0.00-0.30) mg/dL AST (15-37) U/L ALT (16-61) U/L Alkaline Phosphatase (45-117) U/L Troponin I 5.430 H* 5.000 H* (<0.045) ng/mL Total Protein (6.4-8.2) g/dL Albumin (3.2-5.0) g/dL Globulin (2.2-4.2) g/dL Triglycerides ( - 199) mg/dL Cholesterol (200) mg/dL LDL Cholesterol (0-130) mg/dL VLDL Cholesterol (5-40) mg/dL HDL Cholesterol (40 - ) mg/dL Blood Type Antibody Screen Crossmatch 09/03/19 09/03/19 09/03/19 Range/Units 14:03 14:03 14:03 WBC (4.4-11.0) K/mm3 RBC (4.6-6.2) M/mm3 Hgb (13.0-16.5) g/dL Hct (40-54) % MCV (80-94) fL MCH (27.0-32.0) pg MCHC (32-36) g/dL RDW Std Deviation (35.1-43.9) fl RDW Coeff of Yamileth (11.6-14.6) % Plt Count (150-450) K/mm3 MPV (6.2-12.0) fl Immature Gran % (Auto) (0.0-0.9) % Neut % (Auto) (47-70) % Lymph % (Auto) (19-41) % [place] % (Auto) (0-10) % Eos % (Auto) (0-5) % Baso % (Auto) (0-1) % Absolute Neuts (auto) (2.0-7.7) X10^3/uL Absolute Lymphs (auto) (0.83-4.51) X10^3/uL Nucleated RBC % (0-5) % Differential Comment Diff Path Review PT (11.7-14.9) SECONDS INR Sodium (136-145) mmol/L Potassium (3.5-5.1) mmol/L Chloride (98-107) mmol/L Carbon Dioxide (21.0-32.0) mmol/L Anion Gap (5-15) BUN (7-18) mg/dL Creatinine (0.70-1.30) mg/dL Estim Creat Clear Calc ml/min Est GFR (MDRD) Af Amer (>60) mL/min Est GFR (MDRD) Non-Af (>60) mL/min BUN/Creatinine Ratio (10-20) RATIO Glucose (74-106) mg/dL Calcium (8.5-10.1) mg/dL Phosphorus 3.9 (2.5-4.9) mg/dL Magnesium 1.9 (1.6-2.6) mg/dL Total Bilirubin 2.20 H (0.20-1.00) mg/dL Direct Bilirubin 0.42 H (0.00-0.30) mg/dL AST 18 (15-37) U/L ALT 34 (16-61) U/L Alkaline Phosphatase 79 (45-117) U/L Troponin I (<0.045) ng/mL Total Protein 5.5 L (6.4-8.2) g/dL Albumin 2.7 L (3.2-5.0) g/dL Globulin 2.8 (2.2-4.2) g/dL Triglycerides ( - 199) mg/dL Cholesterol (200) mg/dL LDL Cholesterol (0-130) mg/dL VLDL Cholesterol (5-40) mg/dL HDL Cholesterol (40 - ) mg/dL Blood Type O POSITIVE Antibody Screen NEGATIVE Crossmatch See Detail 09/03/19 09/03/19 09/03/19 Range/Units 14:03 14:03 14:03 WBC 0.5 L* (4.4-11.0) K/mm3 RBC 2.11 L (4.6-6.2) M/mm3 Hgb 6.1 L (13.0-16.5) g/dL Hct 18.9 L (40-54) % MCV 89.6 (80-94) fL MCH 28.9 (27.0-32.0) pg MCHC 32.3 (32-36) g/dL RDW Std Deviation 44.4 H (35.1-43.9) fl RDW Coeff of Yamileth 14.0 (11.6-14.6) % Plt Count 179 (150-450) K/mm3 MPV 11.2 (6.2-12.0) fl Immature Gran % (Auto) 0.000 (0.0-0.9) % Neut % (Auto) 13.8 L (47-70) % Lymph % (Auto) 78.4 H (19-41) % [place] % (Auto) 3.9 (0-10) % Eos % (Auto) 3.9 (0-5) % Baso % (Auto) 0.0 (0-1) % Absolute Neuts (auto) 0.1 L (2.0-7.7) X10^3/uL Absolute Lymphs (auto) 0.40 L (0.83-4.51) X10^3/uL Nucleated RBC % 0 (0-5) % Differential Comment SCANNED Diff Path Review March foll PT 16.9 H (11.7-14.9) SECONDS INR 1.4 Sodium 139 (136-145) mmol/L Potassium 4.2 (3.5-5.1) mmol/L Chloride 107 (98-107) mmol/L Carbon Dioxide 28.0 (21.0-32.0) mmol/L Anion Gap 4 L (5-15) BUN 24 H (7-18) mg/dL Creatinine 0.77 (0.70-1.30) mg/dL Estim Creat Clear Calc 64.89 ml/min Est GFR (MDRD) Af Amer 126 (>60) mL/min Est GFR (MDRD) Non-Af 104 (>60) mL/min BUN/Creatinine Ratio 31.0 H (10-20) RATIO Glucose 155 H (74-106) mg/dL Calcium 8.2 L (8.5-10.1) mg/dL Phosphorus (2.5-4.9) mg/dL Magnesium (1.6-2.6) mg/dL Total Bilirubin (0.20-1.00) mg/dL Direct Bilirubin (0.00-0.30) mg/dL AST (15-37) U/L ALT (16-61) U/L Alkaline Phosphatase (45-117) U/L Troponin I 0.121 H (<0.045) ng/mL Total Protein (6.4-8.2) g/dL Albumin (3.2-5.0) g/dL Globulin (2.2-4.2) g/dL Triglycerides ( - 199) mg/dL Cholesterol (200) mg/dL LDL Cholesterol (0-130) mg/dL VLDL Cholesterol (5-40) mg/dL HDL Cholesterol (40 - ) mg/dL Blood Type Antibody Screen Crossmatch Diagnostic Data: Diagnostic Data Chest X-Ray 09/03/19 14:25 IMPRESSION: 1. A right IJ MediPort catheter in place. The tip of an pulmonary head is now at the junction of the right jugular vein and superior vena cava. 2. Some mild vascularity and interstitial crowding is seen in the lung bases bilaterally. Electronically Signed: Scott King, at 15:02 EDT Tel , Service support , Assessment and Plan MDS-transfusion dependent anemia admitted with Chest pain associated with Increased troponin-NE. Leukopenia due to MDS. Chest pain has resolved. Suggestion: 1. To transfuse to keep Hemoglobin above 7-8. 2. To start broad spectrum antibiotics if he becomes febrile. 3. Will hold therapy with Dacogen till he is stable. Thanks. Medications: Prescriptions This Visit Medication Instructions Recorded Potassium Chloride 20 meq PO BID 09/03/19 Medications Added to Medication List This Visit Category Date Time Status Atenolol [Tenormin (beta Jesenia)] Med 09/04/19 10:00 Active 25 mg PO DAILY Potassium Chloride [K-Dur] Med 09/04/19 08:00 Active 20 meq PO BIDCM Primary Care Provider: Chente Phan MD Referring Provider: Kiara Powell MD - Problem List (1) MDS (myelodysplastic syndrome), low grade Status: Chronic (2) RA (refractory anemia) Status: Chronic (3) Non-ST elevated myocardial infarction (non-STEMI) Status: Acute Code Visit Office Visits / Consults: [id number] IP Consult L5
[2019-09-04 12:30] LABS: Pathologist Review Reviewed
[2019-09-04 12:31] LABS: Pathologist Review Reviewed
--- NOTE | 2019-09-04 13:36 | CASEMGMT ---
Per TJ Calderon, pt was informed that LW and HCPOA are not in medical record. Pt stating he has documents and will bring them in. JUDE Hairston
[2019-09-04] MEDS: Atorvastatin Calcium 40 MG Tablet PO (21:19)
[2019-09-05 03:10] VITALS: BP 122/83; PULSE 78; RESP 18; TEMP 37.1; O2SAT 94
[2019-09-05 03:25] VITALS: PULSE 74
[2019-09-05] MEDS: 0.9% NaCl VAD Flush IV ×2 (05:11→16:12)
[2019-09-05 05:24] LABS: Hematocrit 21.9 % (40-54); Hemoglobin 7.1 g/dL (13.0-16.5); Mean Corp Hgb Conc 32.4 g/dL (32-36); Mean Corpuscular Hgb 29.3 pg (27.0-32.0); Mean Corpuscular Volume 90.5 fL (80-94); POSITIVE COUNT YES; Platelet Count 201 K/mm3 (150-450); RBC Distribution Width CV 14.6 % (11.6-14.6); RBC Distribution Width SD 46.7 fl (35.1-43.9); Red Blood Count 2.42 M/mm3 (4.6-6.2)
[2019-09-05 05:29] LABS: Scan Indicated on CBC? Y/N YES- FLAGS NOTED; White Blood Count 0.8 K/mm3 (4.4-11.0)
[2019-09-05 05:50] LABS: Anion Gap 5 (5-15); BUN 16 mg/dL (7-18); BUN/Creat Ratio 26.9 RATIO (10-20); Calcium,Total 7.8 mg/dL (8.5-10.1); Chloride 110 mmol/L (98-107); Creatinine, Serum 0.59 mg/dL (0.70-1.30); EST Glomerular Filtration Rate 141 mL/min (>60); Est Glom Filt Rate - Afr Amer 170 mL/min (>60); Estimated Creatinine Clearance 64.89 ml/min; Glucose 106 mg/dL (74-106); Potassium 4.3 mmol/L (3.5-5.1); Sodium Level 142 mmol/L (136-145)
--- NOTE | 2019-09-05 05:52 | PCM.PN.BLA ---
Progress Note Primary problems do not appear to be clinically significant GI bleeding at this time Please refer back to office pending patients progress,care, anticipated longevity, and interventional stability for endoscopic evaluation, thanks Rajesh
[2019-09-05] MEDS: 0.9% Normal Saline 1,000 ML 100 ML IV (06:12)
[2019-09-05 06:29] LABS: Differential Comment SCANNED
[2019-09-05 07:33] VITALS: PULSE 72
[2019-09-05 08:38] VITALS: BP 125/74; PULSE 66; RESP 18; TEMP 36.8; O2SAT 94
[2019-09-05] MEDS: Pantoprazole Sodium 40 MG Tablet PO (08:39)
[2019-09-05] MEDS: Atenolol 25 MG Tablet PO (08:40)
[2019-09-05] MEDS: BMX LIQUID 180 ML 10 ML PO ×2 (08:44→14:41)
[2019-09-05 10:17] LABS: Pathologist Review Reviewed
--- NOTE | 2019-09-05 11:10 | DCINST_ITS ---
- Discharge Diagnoses Current Active Problems: Current Active and Chronic Problems (Last Reviewed 09/01/19 @ 10:15 by Regina Nieves) A-fib (Chronic) MDS (myelodysplastic syndrome), low grade (Chronic) Acute on chronic blood loss anemia (Chronic) Chest pain, unspecified (Acute) Pancytopenia (Chronic) Neutropenia (Acute) Non-ST elevated myocardial infarction (non-STEMI) (Acute) You will use the following diet at home:: No restrictions Discharge Activity: Return to Normal Activity Allergies/Adverse Reactions: Allergies No Known Allergies Allergy (Verified 09/03/19 13:07) Medications to take at Discharge Atenolol [Tenormin (beta clint)] 25 mg PO DAILY 08/15/17 Atorvastatin Calcium [Lipitor] 40 mg PO QHS 08/15/17 Warfarin [Coumadin] 3 mg PO DAILY 08/15/17 traMADol [Ultram] 50 mg PO BID PRN PRN 11/01/17 Magic Mouth Wash 10 ml PO 4X/DAY #300 ml 09/01/19 Potassium Chloride 20 meq PO BID 09/03/19 Lisinopril [Zestril] 2.5 mg PO DAILY #30 tab 09/05/19 The following prescriptions were given: Lisinopril [Zestril] 2.5 mg PO DAILY #30 tab Transmission Status: Pending to [id number] Primary Care Physician: Chente Phan Chi, MD [Primary Care Provider] - Please follow up with your Primary Care Physician in: 1 Week Test Results: Test results from this visit will be discussed in further detail at your follow- up appointment, if applicable. Please Follow Up With: Scott Ospina NP-C When: 2 Weeks, [facility] Please Follow Up With: Noe Dent MD When: Sunday, as scheduled for routine lab work Proposed Discharge Date: 09/05/19
--- NOTE | 2019-09-05 11:16 | DS.PCM_ITS ---
<Rosemarie Wolfe - Last Filed: 09/05/19 11:28> Discharge Date and Diagnosis Date of Admission: 09/03/19 Date of Discharge: 09/05/19 - Primary Discharge Diagnosis Active and Suspected Problems (Last Reviewed 09/01/19 @ 10:15 by Regina Nieves) 1. 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 Acute on chronic anemia, secondary to MDS with chronic pancytopenia 3. Chronic atrial fibrillation 4. Hypertension 5. Hyperlipidemia - Secondary Discharge Diagnosis Chronic Problems (Last Reviewed 09/01/19 @ 10:15 by Regina Nieves) Anemia (Chronic) HTN (hypertension) (Chronic) A-fib (Chronic) MDS (myelodysplastic syndrome), low grade (Chronic) RA (refractory anemia) (Chronic) Hyperlipidemia (Chronic) Acute on chronic blood loss anemia (Chronic) Pancytopenia (Chronic) Hospital Course and Treatment Imaging Results: Diagnostic Data Chest X-Ray 09/03/19 14:25 IMPRESSION: 1. A right IJ MediPort catheter in place. The tip of an pulmonary head is now at the junction of the right jugular vein and superior vena cava. 2. Some mild vascularity and interstitial crowding is seen in the lung bases bilaterally. Electronically Signed: Scott King, at 15:02 EDT Tel , Service support , Dr. Trinidad- Cardiology Dr. Urbano- Oncology Dr. Goins- General Surgery Operations: None Procedures: 2-D Echocardiogram Summary of Care Provided: The patient is a 74 year old M admitted 09/03/2018 due to chest pain. 1. NSTEMI, cardiomyopathy with reduced ejection fraction 35%-cardiology consulted during admission. No acute EKG changes. Echocardiogram demonstrated an EF of 35%, moderate tricuspid valve insufficiency, moderately severe mitral valve insufficiency, severe pulmonary hypertension with pulmonary artery systolic pressure 75 mmHg, mild aortic valve insufficiency. Possible takotsubo cardiomyopathy versus ischemic. Patient did not want any further invasive cardiac testing. Plan to manage medically. Patient will have repeat echo in 3 months with cardiology. Continue home statin and beta-jesenia regimen. Additionally started on low-dose lisinopril. Follow-up with cardiology in 2 weeks. 2. Acute on chronic anemia, secondary to MDS with chronic pancytopenia- Dr. Goins, general surgery consulted on admission. Unlikely to be GI bleed. Status post 2 units PRBC. Continue outpatient follow-up with oncology. Patient has routine lab work scheduled for 09/08/2018. 3. Chronic atrial fibrillation, episodes of bradycardia-cardiology following. Continue current atenolol, coumadin regimen. 4. Hypertension-stable, continue atenolol regimen. 5. Hyperlipidemia-continue statin regimen. 6. Diarrhea prior to admission-resolved. Suspect side effect of chemotherapy. General: Alert, Oriented x3, Cooperative HEENT: Atraumatic, PERRLA, EOMI, Normocephalic Neck: Supple, No JVD, Negative Carotid Bruits Lungs: Clear to auscultation, Normal air movement Cardiovascular: Normal rate, normal rhythm Abdomen: Bowel Sounds Present, Soft, Non Tender Extremities: No clubbing, No cyanosis, No edema, Capillary Refill Less than 3 Seconds Skin: No rashes, No breakdown Musculoskeletal: No Tenderness to Palpation of Joints or Extremities Neurological: Cranial nerves II-XII grossly intact, Neuro grossly intact Psych/Mental Status: Normal Affect, Appropriate Patient seen and examined prior to discharge. Physical assessment as noted above. Patient is stable for discharge with follow up recommendations as noted above. This patient was seen by NAYELI Tejeda under the supervision of Dr. Rea. - Physical Exam Vital Signs Temp Pulse Resp BP Pulse Ox 98.2 F 66 18 125/74 H 94 09/05/19 08:38 09/05/19 08:38 09/05/19 08:38 09/05/19 08:38 09/05/19 08:38 Oxygen Flow Rate (L/min) 2 Oxygen Delivery Method Room Air Weight: 198 lb 13.711 oz Body Mass Index (BMI) 28.5 Intake and Output for Last 24 Hours 09/03/19 09/04/19 09/05/19 23:59 23:59 23:59 Intake Total 1640 / 1640 3346.66 / 3346.66 971.67 / 971.67 Output Total 800 / 800 1450 / 1450 850 / 850 Balance 840 / 840 1896.66 / 1896.66 121.67 / 121.67 Laboratory Tests Past 24 Hrs 09/03/19 09/04/19 09/05/19 14:03 04:50 05:10 WBC 0.8 L* RBC 2.42 L Hgb 7.1 L Hct 21.9 L MCV 90.5 MCH 29.3 MCHC 32.4 RDW Std Deviation 46.7 H RDW Coeff of Yamileth 14.6 Plt Count 201 MPV 11.0 Differential Comment SCANNED Diff Path Review Reviewed Reviewed Reviewed Sodium Potassium Chloride Carbon Dioxide Anion Gap BUN Creatinine Estim Creat Clear Calc Est GFR (MDRD) Af Amer Est GFR (MDRD) Non-Af BUN/Creatinine Ratio Glucose Calcium 09/05/19 05:10 WBC RBC Hgb Hct MCV MCH MCHC RDW Std Deviation RDW Coeff of Yamileth Plt Count MPV Differential Comment Diff Path Review Sodium 142 Potassium 4.3 Chloride 110 H Carbon Dioxide 27.0 Anion Gap 5 BUN 16 Creatinine 0.59 L Estim Creat Clear Calc 64.89 Est GFR (MDRD) Af Amer 170 Est GFR (MDRD) Non-Af 141 BUN/Creatinine Ratio 26.9 H Glucose 106 Calcium 7.8 L Discharge Diet: No Restrictions Discharge Activity: Return to Normal Activity Home Medications: Medications to take at Discharge Atenolol [Tenormin (beta jesenia)] 25 mg PO DAILY 08/15/17 Atorvastatin Calcium [Lipitor] 40 mg PO QHS 08/15/17 Warfarin [Coumadin] 3 mg PO DAILY 08/15/17 traMADol [Ultram] 50 mg PO BID PRN PRN 11/01/17 Magic Mouth Wash 10 ml PO 4X/DAY #300 ml 09/01/19 Potassium Chloride 20 meq PO BID 09/03/19 Lisinopril [Zestril] 2.5 mg PO DAILY #30 tab 09/05/19 Following Prescrptions Were Given to Patient: Lisinopril [Zestril] 2.5 mg PO DAILY #30 tab Transmission Status: Received by STEPHANIE RUIZ-1956 [facility] Primary Care Physician: Chente Phan Chi, MD [Primary Care Provider] - Please follow up with your Primary Care Physician in: 1 Week Please Follow Up With: Scott Ospina NP-C When: 2 Weeks, [facility] Please Follow Up With: Noe Dent MD When: Sunday, as scheduled for routine lab work Disposition: Home Minutes spent on discharge:: 35 Patient Condition:: Stable Medical Necessity - Tobacco Use Smoking Status: Former smoker Meaningful Use Info Meaningful Use Diagnoses (Choose all that apply): AMI - AMI Aspirin given w/in 24hrs of arrival?: No Reason no aspirin w/in 24hrs of arrival?: Acute anemia ASA at discharge?: No Reason ASA not ordered:: Drug Interaction Statins at discharge?: Yes Vinh/ARB at discharge?: Yes Beta Jesenia at discharge?: Yes Done w/ Acute NH measure.: Yes Documented LVEF (%): 35 <Esau Rea - Last Filed: 09/05/19 11:46> Discharge Date and Diagnosis - Secondary Discharge Diagnosis Chronic Problems (Last Reviewed 09/01/19 @ 10:15 by Regina Nieves) Anemia (Chronic) HTN (hypertension) (Chronic) A-fib (Chronic) MDS (myelodysplastic syndrome), low grade (Chronic) RA (refractory anemia) (Chronic) Hyperlipidemia (Chronic) Acute on chronic blood loss anemia (Chronic) Pancytopenia (Chronic) Hospital Course and Treatment Summary of Care Provided: This patient was seen in conjunction with NAYELI Tejeda . I have independently interviewed and examined the patient and reviewed pertinent historical, laboratory, and other data. Please refer to NAYELI Tejeda note for details of this patient's presentation, findings, and recommendations. I have reviewed NAYELI Tejeda note and concur with documented findings. In brief, patient is a 74-year-old gentleman with history of myelodysplastic syndrome who presented with chest discomfort. Found to have elevated troponin admitted to monitored bed for further management Assessment: 1. Acute non-STEMI 2. Anemia secondary to myelodysplastic syndrome 3. Chemo induced neutropenia 4. Chronic A. fib with episodes of bradycardia 5. Hypertension 6. Dyslipidemia Hospital Course : As documented above - Physical Exam Vital Signs Temp Pulse Resp BP Pulse Ox 98.2 F 66 18 125/74 H 94 09/05/19 08:38 09/05/19 08:38 09/05/19 08:38 09/05/19 08:38 09/05/19 08:38 Oxygen Flow Rate (L/min) 2 Oxygen Delivery Method Room Air Weight: 90.2 kg Body Mass Index (BMI) 28.5 Intake and Output for Last 24 Hours 09/03/19 09/04/19 09/05/19 23:59 23:59 23:59 Intake Total 1640 / 1640 3346.66 / 3346.66 971.67 / 971.67 Output Total 800 / 800 1450 / 1450 850 / 850 Balance 840 / 840 1896.66 / 1896.66 121.67 / 121.67 Laboratory Tests Past 24 Hrs 09/03/19 09/04/19 09/05/19 14:03 04:50 05:10 WBC 0.8 L* RBC 2.42 L Hgb 7.1 L Hct 21.9 L MCV 90.5 MCH 29.3 MCHC 32.4 RDW Std Deviation 46.7 H RDW Coeff of Yamileth 14.6 Plt Count 201 MPV 11.0 Differential Comment SCANNED Diff Path Review Reviewed Reviewed Reviewed Sodium Potassium Chloride Carbon Dioxide Anion Gap BUN Creatinine Estim Creat Clear Calc Est GFR (MDRD) Af Amer Est GFR (MDRD) Non-Af BUN/Creatinine Ratio Glucose Calcium 09/05/19 05:10 WBC RBC Hgb Hct MCV MCH MCHC RDW Std Deviation RDW Coeff of Yamileth Plt Count MPV Differential Comment Diff Path Review Sodium 142 Potassium 4.3 Chloride 110 H Carbon Dioxide 27.0 Anion Gap 5 BUN 16 Creatinine 0.59 L Estim Creat Clear Calc 64.89 Est GFR (MDRD) Af Amer 170 Est GFR (MDRD) Non-Af 141 BUN/Creatinine Ratio 26.9 H Glucose 106 Calcium 7.8 L Code Visit Inpatient E&M: 03908 Disch Hosp
[2019-09-05 14:35] VITALS: BP 107/65; PULSE 76; RESP 18; TEMP 36.7; O2SAT 95
[2019-09-05 15:12] VITALS: PULSE 55
--- NOTE | 2019-09-05 17:05 | PCM.PN.CARD ---
Subjectve: No further chest pain. Patient's echo revealed wall motion abnormality suggestive of Takotsubo cardiomyopathy. Significant LAD stenosis is also in the differential. Objective: Vital Signs Temp Pulse Resp BP Pulse Ox 98.1 F 55 L 18 107/65 95 09/05/19 14:35 09/05/19 15:12 09/05/19 14:35 09/05/19 14:35 09/05/19 14:35 Oxygen Flow Rate (L/min) 2 Oxygen Delivery Method Room Air Weight: 198 lb 13.711 oz Body Mass Index (BMI) 28.5 Intake and Output for Last 24 Hours 09/03/19 09/04/19 09/05/19 23:59 23:59 23:59 Intake Total 1640 / 1640 3346.66 / 3346.66 1971.67 / 1970.67 Output Total 800 / 800 1450 / 1450 850 / 850 Balance 840 / 840 1896.66 / 1896.66 1121.67 / 1121.67 General: Awake, Alert, Oriented x 3 HEENT: Atraumatic Oral: Moist Mucosa Neck: Supple Lungs: Clear to auscultation Cardiovascular: Normal S1, Normal S2 Abdomen: Soft Extremities: No edema Skin: No Rashes Psych/Mental Status: Appropriate 09/05/19 05:10: WBC 0.8 L*, RBC 2.42 L, Hgb 7.1 L, Hct 21.9 L, MCV 90.5, MCH 29.3, MCHC 32.4, Plt Count 201, MPV 11.0 09/05/19 05:10: Sodium 142, Potassium 4.3, Chloride 110 H, Carbon Dioxide 27.0, Anion Gap 5, BUN 16, Creatinine 0.59 L, Est GFR (MDRD) Af Amer 170, Est GFR (MDRD) Non-Af 141, BUN/Creatinine Ratio 26.9 H, Glucose 106, Calcium 7.8 L Rhythm: EKG: ECHO: Stress Test: Cardiac Cath: PCI: CT Surgery: Holter monitor: EPS: PPM: CXR: Chest CT Scan: Medical Necessity - Tobacco Use Smoking Status: Former smoker Assessment/Plan 1. Non-STEMI: patient's OH and angina appear to be due to demand supply mismatch from low hemoglobin with or without underlying coronary artery disease. At this point treating any underlying coronary artery disease will be very difficult because of ongoing issues with anemia and possible GI bleed which will make using antiplatelet agents difficult. If patient has refractory angina despite his hemoglobin being close to 8-9 then we will consider invasive work-up more as a palliative approach. At this point a 2D echo will be useful to guide transfusions and volume management as required. It will be reasonable to keep the patient on a beta-clint and a statin. No aspirin or other antiplatelet agents due to significant anemia and GI bleed on presentation. 2. LV dysfunction: This could represent possible cardiomyopathy or significant coronary artery disease. At this time as mentioned above even if patient has coronary artery disease revascularization is going to be difficult. So I think it will be reasonable to treat the patient with Toprol-XL and low-dose lisinopril for his cardiomyopathy and reevaluate in 3 months. If he has persistent LV dysfunction then at that point we can have a discussion regarding further work-up. Patient actually prefers this approach and is not interested in cardiac catheterization at this time anyway.
== END 2019-09-05 17:29 | disposition home or self-care (01) | DRG 281 ==
LOC: ED 16:15 → PCU 16:26
PROVIDERS: Nurse Practitioner Family; Physician Assistant; Admitting Provider Family Medicine; Emergency Provider Emergency Medicine; Family Provider Family Medicine Geriatric Medicine; PCP Family Medicine Geriatric Medicine; Referring Provider Family Medicine; Visit Provider Internal Medicine
DX: I21.4 Non-ST elevation (NSTEMI) myocardial infarction (principal); I42.9 Cardiomyopathy, unspecified; D62 Acute posthemorrhagic anemia; I48.20 Chronic atrial fibrillation, unspecified; D61.818 Other pancytopenia; K62.5 Hemorrhage of anus and rectum; D63.8 Anemia in other chronic diseases classified elsewhere; I10 Essential (primary) hypertension; E78.5 Hyperlipidemia, unspecified; D46.20 Refractory anemia with excess of blasts, unspecified; Z79.01 Long term (current) use of anticoagulants; I48.0 Paroxysmal atrial fibrillation; Z87.891 Personal history of nicotine dependence; R73.9 Hyperglycemia, unspecified; Z79.899 Other long term (current) drug therapy; R19.7 Diarrhea, unspecified; I27.20 Pulmonary hypertension, unspecified; I07.1 Rheumatic tricuspid insufficiency; I34.0 Nonrheumatic mitral (valve) insufficiency; T45.1X5A Adverse effect of antineoplastic and immunosuppressive drugs, initial encounter
CPT/HCPCS: 36591; 71045; 80048; 80061; 80076; 83735; 84100; 84484; 85014; 85018; 85025; 85027; 85610; 86850; 86900; 86901; 86920; 86922; 93005; 93306; 97162; 97166; 97802; 99285; J7030; J7040; P9016; A4216

== ENCOUNTER → 2019-12-17 08:47 | Outpatient (CLI) | payer MEDICARE, SELFPAY ==
[2019-09-24 15:28] VITALS: BMI 28.3
[2019-12-03 10:48] VITALS: BMI 29.2
--- NOTE | 2019-12-17 08:48 | ECHODONC_ITS ---
Reason For Study: Assess LV function Procedure This was a 2D Doppler, Color Flow transthoracic echocardiogram. Myocardial strain analysis was performed in this exam to aid in the assessment of cardiac function. The study was technically difficult. Due to arrhythmia. Exam performed in department. Left Ventricle Normal LV size. The estimated ejection fraction is 65-70 %. Normal diastology for age. No regional wall motion abnormalities noted. Right Ventricle Normal RV size. Normal systolic function. Atria The left atrium is severely enlarged. The right atrium is severely enlarged. Mitral Valve There is no mitral valve stenosis. Mild (1+) mitral valve insufficiency. Tricuspid Valve There is no tricuspid stenosis. Mild to moderate (1-2+) tricuspid valve insufficiency. Pulmonary artery systolic pressure is 45 mmHg. Aortic Valve Trisinus/trileaflet aortic valve. There is no aortic stenosis. Mild (1+) aortic valve insufficiency. Pulmonic Valve There is no pulmonic valvular stenosis. No pulmonic valve insufficiency. Great Vessels Mild to moderately dilated aortic root. Pericardium/Pleural No pericardial effusion. MMode/2D Measurements & Calculations LVIDd: 5.3 cm IVSd: 1.3 cm Ao root diam: 4.7 cm LVIDs: 3.5 cm LVPWd: 1.1 cm RVDd: 3.4 cm FS: 34.2 % LAV(MOD-bp): 157.5 ml LA A4 area: 38.4 cm2 LA dimension(2D): 5.6 cm LAV(MOD-bp) Indexed: 74.8 ml/m2 LAV(MOD-sp2): 169.4 ml LAV(MOD-sp4): 146.9 ml RA A4 area: 24.2 cm2 Doppler Measurements & Calculations MV E max yoanna: 115.1 cm/sec Ao V2 max: 138.8 cm/sec AI max yoanna: 400.7 cm/sec Ao max P.7 mmHg AI max P.2 mmHg Ao V2 mean: 105.7 cm/sec AI dec slope: 127.1 cm/sec2 Ao mean P.8 mmHg AI P1/2t: 923.1 msec Ao V2 VTI: 29.3 cm LV V1 max: 99.5 cm/sec PA V2 max: 92.0 cm/sec TR max yoanna: 294.0 cm/sec LV V1 max P.0 mmHg TR max P.6 mmHg LV V1 mean P.1 mmHg LV V1 mean: 69.6 cm/sec LV V1 VTI: 21.7 cm Interpretation Summary The estimated ejection fraction is 65-70 %. Normal diastology for age. The left atrium is severely enlarged. The right atrium is severely enlarged. Mild (1+) mitral valve insufficiency. Mild to moderate (1-2+) tricuspid valve insufficiency. Pulmonary artery systolic pressure is 45 mmHg. Mild (1+) aortic valve insufficiency. Mild to moderately dilated aortic root. Ordering Physician: Renae Trinidad Referring Physician: Chente Phan Chi Performed By: Radha Banegas, YARIEL, RVT
== END ==
PROVIDERS: Family Provider Family Medicine Geriatric Medicine; PCP Family Medicine Geriatric Medicine; Referring Provider Nurse Practitioner Family; Visit Provider Nurse Practitioner Family
DX: Z51.11 Encounter for antineoplastic chemotherapy (principal); I51.81 Takotsubo syndrome
CPT/HCPCS: 93306; 93356

== ENCOUNTER → 2019-12-25 13:25 | Outpatient (CLI) | payer MEDICARE, SELFPAY ==
[2019-12-25 13:25] VITALS: BMI 29.2
[2019-12-25 15:45] LABS: Absolute Lymphocyte Count 1.03 X10^3/uL (0.83-4.51); Absolute Neutrophil Count 4.5 X10^3/uL (2.0-7.7); Basophil# 0.02 X10^3/uL; Basophil% 0.3 % (0-1); Eosinophil# 0.17 X10^3/uL; Eosinophils% 2.6 % (0-5); Hematocrit 25.3 % (40-54); Hemoglobin 8.2 g/dL (13.0-16.5); Lymphocyte # 1.03 X10^3/ul (4.0); Lymphocyte % 15.8 % (19-41); Mean Corp Hgb Conc 32.4 g/dL (32-36); Mean Corpuscular Hgb 29.3 pg (27.0-32.0); Mean Corpuscular Volume 90.4 fL (80-94); Mean Platelet Vol. 11.5 fl (6.2-12.0); Monocyte# 0.81 X10^3/uL; Monocyte% 12.4 % (0-10); NRBC Flagged by Analyzer 0 % (0-5); Neutrophil # 4.45 X10^3/uL (2.7-7.7); Neutrophil % 68.1 % (47-70); Platelet Count 162 K/mm3 (150-450); RBC Distribution Width CV 14.4 % (11.6-14.6); White Blood Count 6.5 K/mm3 (4.4-11.0)
[2019-12-25 16:12] LABS: Vitamin D,25 Hydroxy 16.2 ng/mL (29.95-100.01)
[2019-12-25 16:16] LABS: ALB/GLOB Ratio 0.9 RATIO (0.9-2.4); AST(SGOT) 21 U/L (15-37); Alanine Aminotransfer ALT/SGPT 56 U/L (16-61); Albumin, Serum 2.9 g/dL (3.2-5.0); Alkaline Phosphatase 77 U/L (45-117); Anion Gap 3 (5-15); BUN 24 mg/dL (7-18); BUN/Creat Ratio 35.1 RATIO (10-20); Calcium,Total 8.7 mg/dL (8.5-10.1); Chloride 108 mmol/L (98-107); Creatinine, Serum 0.68 mg/dL (0.70-1.30); EST Glomerular Filtration Rate 120 mL/min (>60); Est Glom Filt Rate - Afr Amer 145 mL/min (>60); Globulin 3.2 g/dL (2.2-4.2); Glucose 98 mg/dL (74-106); Potassium 4.7 mmol/L (3.5-5.1); Protein, Total 6.1 g/dL (6.4-8.2); Sodium Level 140 mmol/L (136-145); Thyroid Stim Hormone (TSH) 1.39 uIU/mL (0.358-3.74); Uric Acid 3.1 mg/dL (3.5-7.2)
== END ==
PROVIDERS: PCP Family Medicine Geriatric Medicine; Visit Provider Family Medicine Geriatric Medicine
DX: I10 Essential (primary) hypertension (principal); M10.9 Gout, unspecified; E55.9 Vitamin D deficiency, unspecified
CPT/HCPCS: 36415; 80053; 82306; 84443; 84550; 85025

== ENCOUNTER → 2020-06-23 14:41 | Outpatient (CLI) | payer MEDICARE, SELFPAY ==
[2020-06-08 12:04] VITALS: BMI 27.9
[2020-06-23 16:38] LABS: Absolute Lymphocyte Count 0.64 X10^3/uL (0.83-4.51); Absolute Neutrophil Count 3.8 X10^3/uL (2.0-7.7); Basophil# 0.03 X10^3/uL; Basophil% 0.6 % (0-1); Eosinophil# 0.09 X10^3/uL; Eosinophils% 1.8 % (0-5); Hematocrit 25.8 % (40-54); Hemoglobin 8.4 g/dL (13.0-16.5); Lymphocyte # 0.64 X10^3/ul (4.0); Lymphocyte % 12.7 % (19-41); Mean Corp Hgb Conc 32.6 g/dL (32-36); Monocyte# 0.51 X10^3/uL; Monocyte% 10.1 % (0-10); NRBC Flagged by Analyzer 0 % (0-5); Neutrophil # 3.75 X10^3/uL (2.7-7.7); Neutrophil % 74.4 % (47-70); Platelet Count 211 K/mm3 (150-450); RBC Distribution Width CV 12.5 % (11.6-14.6); RBC Distribution Width SD 40.6 fl (35.1-43.9)
[2020-06-23 16:52] LABS: Vitamin D,25 Hydroxy 21.4 ng/mL
[2020-06-23 17:02] LABS: AST(SGOT) 31 U/L (15-37); Alanine Aminotransfer ALT/SGPT 48 U/L (16-61); Albumin, Serum 3.1 g/dL (3.2-5.0); Alkaline Phosphatase 93 U/L (45-117); Anion Gap 3 (5-15); BUN 19 mg/dL (7-18); Calcium,Total 8.5 mg/dL (8.5-10.1); Chloride 108 mmol/L (98-107); Creatinine, Serum 0.76 mg/dL (0.70-1.30); EST Glomerular Filtration Rate 106 mL/min (>60); Est Glom Filt Rate - Afr Amer 128 mL/min (>60); Glucose 126 mg/dL (74-106); Potassium 4.5 mmol/L (3.5-5.1); Protein, Total 6.1 g/dL (6.4-8.2); Sodium Level 139 mmol/L (136-145); Thyroid Stim Hormone (TSH) 1.17 uIU/mL (0.358-3.74)
== END ==
PROVIDERS: PCP Family Medicine Geriatric Medicine; Visit Provider Family Medicine Geriatric Medicine
DX: E55.9 Vitamin D deficiency, unspecified (principal); I10 Essential (primary) hypertension; M10.9 Gout, unspecified; D46.20 Refractory anemia with excess of blasts, unspecified; D46.4 Refractory anemia, unspecified
CPT/HCPCS: 36415; 80053; 82306; 84443; 84550; 85025

== ENCOUNTER → 2020-07-14 14:20 | Outpatient (CLI) | payer MEDICARE, SELFPAY ==
[2020-07-06 11:02] VITALS: BMI 27.9
[2020-07-14 15:59] LABS: Absolute Neutrophil Count 4.2 X10^3/uL (2.0-7.7); Basophil# 0.03 X10^3/uL; Basophil% 0.5 % (0-1); Eosinophils% 1.7 % (0-5); Hematocrit 25.9 % (40-54); Hemoglobin 8.3 g/dL (13.0-16.5); Lymphocyte % 13.9 % (19-41); Mean Corpuscular Hgb 28.6 pg (27.0-32.0); Mean Corpuscular Volume 89.3 fL (80-94); Mean Platelet Vol. 11.7 fl (6.2-12.0); Monocyte# 0.62 X10^3/uL; Monocyte% 10.8 % (0-10); NRBC Flagged by Analyzer 0 % (0-5); Neutrophil # 4.18 X10^3/uL (2.7-7.7); Neutrophil % 72.8 % (47-70); Platelet Count 168 K/mm3 (150-450); RBC Distribution Width CV 12.9 % (11.6-14.6); RBC Distribution Width SD 41.7 fl (35.1-43.9); White Blood Count 5.8 K/mm3 (4.4-11.0)
[2020-07-14 16:04] LABS: Anion Gap 2 (5-15); BUN 19 mg/dL (7-18); Calcium,Total 8.6 mg/dL (8.5-10.1); Chloride 107 mmol/L (98-107); Creatinine, Serum 0.73 mg/dL (0.70-1.30); EST Glomerular Filtration Rate 110 mL/min (>60); Est Glom Filt Rate - Afr Amer 134 mL/min (>60); Glucose 109 mg/dL (74-106); Potassium 4.9 mmol/L (3.5-5.1); Sodium Level 140 mmol/L (136-145)
== END ==
PROVIDERS: PCP Family Medicine Geriatric Medicine; Visit Provider Family Medicine Geriatric Medicine
DX: G93.9 Disorder of brain, unspecified (principal); N39.0 Urinary tract infection, site not specified; D46.20 Refractory anemia with excess of blasts, unspecified; D46.4 Refractory anemia, unspecified
CPT/HCPCS: 36415; 80048; 85025; 87086; 87088

== ENCOUNTER → 2020-11-25 14:08 | Outpatient (CLI) | payer MEDICARE, SELFPAY ==
[2020-11-23 08:24] VITALS: BMI 26.8
== END ==
PROVIDERS: PCP Family Medicine Geriatric Medicine; Visit Provider Family Medicine Geriatric Medicine
DX: N39.0 Urinary tract infection, site not specified (principal); D46.20 Refractory anemia with excess of blasts, unspecified; D46.4 Refractory anemia, unspecified
CPT/HCPCS: 87086; 87088

== ENCOUNTER → 2020-12-13 10:00 | Outpatient (CLI) | payer MEDICARE, SELFPAY ==
[2020-11-30 09:10] VITALS: BMI 26.8
== END ==
PROVIDERS: PCP Family Medicine Geriatric Medicine; Referring Provider Family Medicine; Visit Provider Family Medicine
DX: D46.20 Refractory anemia with excess of blasts, unspecified (principal); D46.4 Refractory anemia, unspecified
CPT/HCPCS: 36591; 80053; 85025; 85610; 86850; 86900; 86901; 86920; 86922; A4216

== ENCOUNTER → 2021-01-28 09:10 | Outpatient (REF) | payer MEDICARE, SELFPAY ==
[2021-01-10 11:28] VITALS: BMI 25.4
[2021-01-28 10:05] LABS: Mucous, Urine 0 SEEN /hpf (<or=2+); Red Blood Cells-Urine 0 SEEN /hpf (0-5); Squamous Epithelial Cells - UA 0 SEEN /hpf (0-5)
[2021-01-28 10:25] LABS: Color, Urine Yellow (Yellow); Glucose, Dipstick Normal (Normal); Ketone-Dipstick Negative (Negative); Leukocyte Esterase-Dipstick 25 /ul (Negative); Nitrite-Dipstick Negative (Negative); Occult Blood-Urine 10 /ul (Negative); Protein-Dipstick Negative (Negative); Urine Bilirubin Dipstick Negative (Negative); Urine Clarity Sl. Cloudy (Clear); Urine Urobilinogen 8 mg/dl (Normal)
[2021-01-28 10:31] LABS: Bacteria RARE /hpf (None Seen); White Blood Cells 0-5 SEEN /hpf (0-5)
== END ==
PROVIDERS: PCP Family Medicine Geriatric Medicine; Visit Provider Family Medicine
DX: R41.0 Disorientation, unspecified (principal)
CPT/HCPCS: 81001; 87086; 87088

== ENCOUNTER → 2021-07-05 05:00 | Outpatient (REF) | payer MEDICARE, SELFPAY ==
[2021-06-21 08:32] VITALS: BMI 24.3
[2021-07-05 07:35] LABS: INR Fingerstick 1.3; Prothrombin Time Fingerstick 15.1 SEC (11.9-14.4)
== END ==
PROVIDERS: PCP Family Medicine Geriatric Medicine; Visit Provider Family Medicine
DX: Z79.01 Long term (current) use of anticoagulants (principal)
CPT/HCPCS: 36416; 85610

== ENCOUNTER 2022-01-15 14:53 | Emergency (ER) | payer MEDICARE, SELFPAY ==
[2022-01-15 14:54] VITALS: BP 140/99; PULSE 89; RESP 16; TEMP 36.7; O2SAT 100; BMI 27.6
--- NOTE | 2022-01-15 15:50 | CT_ITS ---
STUDY: CT BRAIN WITHOUT CONTRAST REASON FOR EXAM: Male, 76 years old. confusion RADIATION DOSAGE (If Supplied By Facility): CTDIvol = ( 47.06 ) mGy, DLP = ( 872.68 ) mGycm TECHNIQUE: Transaxial CT imaging of the brain was performed without administration of intravenous contrast material. Individualized dose optimization techniques were used for this CT. COMPARISON: No relevant priors. FINDINGS: Normal soft tissue structures. Normal calvarium. There is moderate cerebral atrophy with widening of the extra-axial spaces and ventricular dilatation. Normal white matter tracts of the cerebral hemispheres. Normal basal ganglia and thalami. Normal brainstem. Normal cerebellum. There is no intracranial hemorrhage. There are no findings of an acute ischemic infarction. Normal visualized paranasal sinuses. CT/Brain/Head without Contrast IMPRESSION: Chronic involutional changes of the brain. Electronically Signed: Farooq Rodriguez MD at 16:56 EST ,
--- NOTE | 2022-01-15 15:52 | EDS_ITS ---
HPI History of Present Illness Chief Complaint: Alt LOC Informant: patient and family Narrative Narrative: Patient reportedly found outside at [facility] this morning with just a sweatshirt on. He states that he just wanted to go out and look at the brick on the side of the building. Family member is now at bedside. She states he does have some memory problems at baseline which can vary greatly throughout the day. He denies falling or injuring himself. Staff at [facility] is concerned that he was not at his mental status baseline and the protocol was he needed to be evaluated. Patient denies any complaints and does not really know why he is here. [facility] Medical History A-fib Abdominal aneurysm Acute on chronic blood loss anemia Chest pain, unspecified Encounter for education Essential hypertension Hearing loss Hyperlipidemia MDS (myelodysplastic syndrome), low grade Neutropenia Non-ST elevated myocardial infarction (non-STEMI) Pancytopenia [place] RA (refractory anemia) Wears hearing aid in both ears Home Medications warfarin 4 mg tablet 3 mg PO MOWEFR tab 09/22/20 [History Last Taken Unknown] acetaminophen 650 mg PO Q6H PRN 03/14/21 [History Last Taken Unknown] atorvastatin 40 mg PO DAILY 03/14/21 [History Last Taken Unknown] lorazepam 0.5 mg PO BID 01/15/22 [History Last Taken Unknown] quetiapine 25 mg PO QHS 01/15/22 [History Last Taken Unknown] tramadol 50 mg PO QHS PRN 01/15/22 [History Last Taken Unknown] warfarin 3 mg PO SUTUTHSA 01/15/22 [History Last Taken Unknown] Allergy/AdvReac Type Severity Reaction Status Date / Time No Known Allergies Allergy Verified 01/15/22 15:09 Family History Father CVA (cerebral vascular accident) Mother CVA (cerebral vascular accident) Surgical History H/O hernia repair History of abdominal aortic aneurysm (AAA) repair History of arthroplasty of left knee Hx of cholecystectomy Social History Smoking Status: Unknown if ever smoked how long ago did patient quit smokin years ago smoked a pipe alcohol intake: never substance use type: does not use caffeine: No ROS ROS ED Constitutional Constitutional ED: Denies chills or fever(s) Eyes Eyes: Denies change in vision ENT ENT ED: Denies sore throat Cardiovascular Cardiovascular: Denies chest pain Respiratory/Chest Respiratory/Chest: Denies cough or dyspnea Gastrointestinal Gastrointestinal: Denies abdominal pain, diarrhea, nausea or vomiting Genitourinary Genitourinary ED: Denies dysuria Musculoskeletal Musculoskeletal: Denies back pain Integumentary Denies rash Neurologic Neurologic: Denies headache(s) or weakness Allergic/Immunologic Allergic/Immunologic ED: Denies urticaria EXAM Physical Exam Const Vital Signs: 01/15/22 14:54 01/15/22 15:09 01/15/22 17:18 Temperature 98.1 F Temperature Source Oral Pulse Rate 89 78 Respiratory Rate 16 16 Respiratory Effort Normal Respiratory Pattern Normal Blood Pressure 140/99 H 148/89 H Blood Pressure Mean 112 108 Pulse Ox 100 99 Oxygen Delivery Method Room Air Room Air Positive well nourished and well developed General Appearance ED: well developed HEENT Reports moist mucous membranes Negative for trauma Eyes PERRL and EOMs intact bilaterally Neck supple Chest Wall inspection of chest normal and palpation of chest normal Resp normal respiratory effort and clear to auscultation bilaterally Cardio regular rate and regular rhythm GI non-tender Palpation: soft Extremity normal to inspection Neuro Neuro Narrative: Alert and oriented. Answers questions appropriately. Is able to tell me details of what happened this morning. Family member concerns this is accurate based on what she was told from the [facility]. No focal neuro deficits. Sensorium / Orientation: alert Psych mental status grossly normal Skin no rashes or lesions noted MDM MDM MDM Narrative Medical decision making narrative: CT scan of the head obtained. Lab work including INR ordered. Along with urinalysis. Lab Data Attestation: I reviewed the patient's lab results. Labs: Laboratory Results - last 24 hr 01/15/22 01/15/22 01/15/22 16:00 16:00 16:00 WBC 3.6 L RBC 2.20 L Hgb 6.5 L Hct 19.8 L MCV 90.0 MCH 29.5 MCHC 32.8 RDW Std Deviation 45.6 H RDW Coeff of Yamileth 13.9 Plt Count 96 L MPV 11.0 Immature Gran % (Auto) 0.300 Neut % (Auto) 65.9 Lymph % (Auto) 19.1 [place] % (Auto) 12.1 H Eos % (Auto) 2.0 Baso % (Auto) 0.6 Absolute Neuts (auto) 2.4 Absolute Lymphs (auto) 0.68 L Nucleated RBC % 0 PT 22.0 H INR 2.0 Sodium 140 Potassium 4.5 Chloride 110 H Carbon Dioxide 28.0 Anion Gap 2 L BUN 22 H Creatinine 0.73 Estim Creat Clear Calc 62.86 Est GFR (MDRD) Af Amer 134 Est GFR (MDRD) Non-Af 111 BUN/Creatinine Ratio 30.2 H Glucose 115 H Calcium 7.8 L Urine Color Urine Clarity Urine pH Ur Specific [place] Urine Protein Urine Glucose (UA) Urine Ketones Urine Occult Blood Urine Nitrite Urine Bilirubin Urine Urobilinogen Ur Leukocyte Esterase Urine RBC Urine WBC Ur Squamous Epith Cells Urine Bacteria Urine Mucus 01/15/22 16:10 WBC RBC Hgb Hct MCV MCH MCHC RDW Std Deviation RDW Coeff of Yamileth Plt Count MPV Immature Gran % (Auto) Neut % (Auto) Lymph % (Auto) [place] % (Auto) Eos % (Auto) Baso % (Auto) Absolute Neuts (auto) Absolute Lymphs (auto) Nucleated RBC % PT INR Sodium Potassium Chloride Carbon Dioxide Anion Gap BUN Creatinine Estim Creat Clear Calc Est GFR (MDRD) Af Amer Est GFR (MDRD) Non-Af BUN/Creatinine Ratio Glucose Calcium Urine Color Yellow Urine Clarity Clear Urine pH 6.5 Ur Specific [place] 1.010 Urine Protein Negative Urine Glucose (UA) Normal Urine Ketones Negative Urine Occult Blood 25 H Urine Nitrite Negative Urine Bilirubin Negative Urine Urobilinogen Normal Ur Leukocyte Esterase Negative Urine RBC 0 SEEN Urine WBC 0 SEEN Ur Squamous Epith Cells 0 SEEN Urine Bacteria 0 SEEN Urine Mucus 0 SEEN Radiography Diagnostic Testing: Clinical Impression(s) from Imaging Studies Brain CT 01/15/22 15:50 IMPRESSION: Chronic involutional changes of the brain. Electronically Signed: Farooq Rodriguez MD at 16:56 EST , Treatment and Re-Evaluation Comments:: Patient has chronic anemia and her hemoglobin is 6.5. This is compared to 6.1 on January 09. He is due for a blood transfusion tomorrow. INR is therapeutic at 2.0. Chemistry studies largely unremarkable. Urinalysis shows no acute infection. Head CT is normal with only chronic involutional changes. Family member at bedside states that he is at his baseline. He will be discharged back to [facility]. Return instructions provided. Discharge Plan Triage Chief Complaint: Alt LOC ED Provider: Keyana Mak Dx/Rx/DC Orders Clinical Impression: Confusion Instructions: ED Confusion Prescriptions: No Action warfarin 4 mg tablet 3 mg PO MOWEFR RF: 0 atorvastatin 40 MG tablet 40 mg PO DAILY RF: 0 acetaminophen 325 MG capsule 650 mg PO Q6H PRN (Reason: Pain 1-10 Or Fever) RF: 0 quetiapine 25 mg tablet 25 mg PO QHS RF: 0 tramadol 50 mg Tablet 50 mg PO QHS PRN (Reason: Pain) RF: 0 warfarin 3 mg Tablet 3 mg PO SUTUTHSA RF: 0 lorazepam 0.5 mg tablet 0.5 mg PO BID RF: 0 Primary Care Provider: Michaela Meyer Referrals: Michaela Meyer MD [Primary Care Provider] - As Needed Disposition Disposition: Home, Self Care Discharge Date/Time: 01/15/22 17:42
[2022-01-15 16:08] LABS: Absolute Lymphocyte Count 0.68 X10^3/uL (0.83-4.51); Absolute Neutrophil Count 2.4 X10^3/uL (2.0-7.7); Basophil# 0.02 X10^3/uL; Basophil% 0.6 % (0-1); Eosinophil# 0.07 X10^3/uL; Hematocrit 19.8 % (40-54); Hemoglobin 6.5 g/dL (13.0-16.5); Lymphocyte # 0.68 X10^3/ul (0.83-4.51); Lymphocyte % 19.1 % (19-41); Mean Corp Hgb Conc 32.8 g/dL (32-36); Mean Corpuscular Hgb 29.5 pg (27.0-32.0); Monocyte# 0.43 X10^3/uL; Monocyte% 12.1 % (0-10); NRBC Flagged by Analyzer 0 % (0-5); Neutrophil # 2.35 X10^3/uL (2.7-7.7); Neutrophil % 65.9 % (47-70); POSITIVE COUNT YES; Platelet Count 96 K/mm3 (150-450); RBC Distribution Width CV 13.9 % (11.6-14.6); RBC Distribution Width SD 45.6 fl (35.1-43.9); White Blood Count 3.6 K/mm3 (4.4-11.0)
[2022-01-15 16:19] LABS: Bacteria 0 SEEN /hpf (None Seen); Mucous, Urine 0 SEEN /hpf (<or=2+); Red Blood Cells-Urine 0 SEEN /hpf (0-5); Squamous Epithelial Cells - UA 0 SEEN /hpf (0-5); White Blood Cells 0 SEEN /hpf (0-5)
[2022-01-15 16:20] LABS: Anion Gap 2 (5-15); BUN 22 mg/dL (7-18); BUN/Creat Ratio 30.2 RATIO (10-20); Calcium,Total 7.8 mg/dL (8.5-10.1); Chloride 110 mmol/L (98-107); Creatinine, Serum 0.73 mg/dL (0.70-1.30); EST Glomerular Filtration Rate 111 mL/min (>60); Est Glom Filt Rate - Afr Amer 134 mL/min (>60); Estimated Creatinine Clearance 62.86 ml/min; Glucose 115 mg/dL (74-106); Potassium 4.5 mmol/L (3.5-5.1); Sodium Level 140 mmol/L (136-145)
[2022-01-15 16:21] LABS: Color, Urine Yellow (Yellow); Glucose, Dipstick Normal (Normal); Ketone-Dipstick Negative (Negative); Leukocyte Esterase-Dipstick Negative /ul (Negative); Nitrite-Dipstick Negative (Negative); Occult Blood-Urine 25 /ul (Negative); Protein-Dipstick Negative (Negative); Urine Bilirubin Dipstick Negative (Negative); Urine Clarity Clear (Clear); Urine Urobilinogen Normal (Normal); Urine pH 6.5 (5.0 - 8.0)
[2022-01-15 17:18] VITALS: BP 148/89; PULSE 78; RESP 16; O2SAT 99
== END 2022-01-15 23:59 | disposition home or self-care (01) ==
PROVIDERS: Emergency Provider Emergency Medicine; PCP Family Medicine; Visit Provider Emergency Medicine
DX: R41.0 Disorientation, unspecified (principal); E78.5 Hyperlipidemia, unspecified; I25.2 Old myocardial infarction; Z87.891 Personal history of nicotine dependence; Z79.01 Long term (current) use of anticoagulants; Z79.899 Other long term (current) drug therapy
CPT/HCPCS: 70450; 80048; 81001; 85025; 85610; 99285

== ENCOUNTER 2022-04-20 16:16 | Emergency (ER) | payer MEDICARE, MEDICAID, SELFPAY ==
[2022-04-20 16:17] VITALS: BP 96/80; PULSE 95; RESP 25; TEMP 36.3; O2SAT 96; BMI 30.7
[2022-04-20 16:21] VITALS: BP 96/80; PULSE 95; RESP 25; TEMP 36.3; O2SAT 96
--- NOTE | 2022-04-20 17:13 | EX.ED.DYSGE1 ---
HPI <NAYELI Dominguez - Last Filed: 04/20/22 17:59> History of Present Illness Chief Complaint: Weakness Narrative Narrative: 76-year-old male with history of end-stage bone cancer, atrial fibrillation, pancytopenia, neutropenia presents to the emergency department with ongoing weakness. Patient has been sleeping for the last 2 weeks, has been declining over the last several days. He did receive a chest x-ray today showing left lower lobe pneumonia. The patient's family does not want any life-saving measures. They are trying to get the patient to hospice however the patient's POA was out of town and could not get access to them. Patient per family is acting appropriate for the last 2 weeks. The POA is on the way and would like to get the patient to hospice and to have no extraordinary measures done. Per the family, the patient has been having edema to all extremities, any sort of movement causes great deal of pain. POA was contacted on the phone [facility] <NAYELI Dominguez - Last Filed: 04/20/22 17:59> [facility] Medical History A-fib Abdominal aneurysm Acute on chronic blood loss anemia Chest pain, unspecified Encounter for education Essential hypertension Hearing loss Hyperlipidemia MDS (myelodysplastic syndrome), low grade Neutropenia Non-ST elevated myocardial infarction (non-STEMI) Pancytopenia PORT PLACEMENT RA (refractory anemia) Wears hearing aid in both ears Home Medications warfarin 4 mg tablet 4 mg PO DAILY tab 09/22/20 [History Last Taken Unknown] acetaminophen 1,000 mg PO DAILY PRN PRN 03/14/21 [History Last Taken Unknown] atorvastatin 40 mg PO DAILY 03/14/21 [History Last Taken Unknown] lorazepam 0.5 mg PO BID 01/15/22 [History Last Taken Unknown] quetiapine 25 mg PO QHS 01/15/22 [History Last Taken Unknown] tramadol 50 mg PO QHS PRN 01/15/22 [History Last Taken Unknown] levofloxacin 750 mg PO DAILY #6 tab 04/20/22 [Rx Last Taken Unknown] Allergy/AdvReac Type Severity Reaction Status Date / Time No Known Allergies Allergy Verified 04/20/22 16:17 Family History Father CVA (cerebral vascular accident) Mother CVA (cerebral vascular accident) Surgical History H/O hernia repair History of abdominal aortic aneurysm (AAA) repair History of arthroplasty of left knee Hx of cholecystectomy Social History Smoking Status: Unknown if ever smoked how long ago did patient quit smokin years ago smoked a pipe alcohol intake: never substance use type: does not use caffeine: No ROS <NAYELI Dominguez - Last Filed: 04/20/22 17:59> ROS ED ROS Narrative Due to the illness of the patient a review of symptoms cannot be complete EXAM <NAYELI Dominguez - Last Filed: 04/20/22 17:59> Physical Exam Narrative Exam Narrative: Vital signs reviewed. Patient appears ill, patient is edematous throughout his body. Patient does open his eyes for verbal stimuli however patient continues to sleep and not be very active. HEET: Head normocephalic atraumatic, TMs clear bilaterally. Posterior pharynx is clear, dry mucous membranes. Nares clear bilaterally. Neck: Supple with no lymphadenopathy or tenderness. No signs of meningismus, negative jolt sign. Cardiac: Irregular rhythm no murmurs gallops or rubs, equal peripheral pulses bilaterally. Respiratory: Patient does have left lobe crackles. No chest tenderness. Abdomen: . No abdominal bruit or pulsatile masses. No hepatosplenomegaly. Patient has abdominal distention, it is firm. Edematous. Extremities: Bilateral 3+ pitting edema a, no signs of gross trauma or deformity. Active full range of motion of all extremities. Neuro: Cranial nerves II through XII intact, no focal neurological deficits. Skin: Clean dry and intact with no rash, purpura, petechiae, vesicles or pustules. Patient has a yellowish skin tone secondary to bone cancer Backs/flank: No CVA tenderness, no midline spinal tenderness, no deformity. Psych: Normal mood and affect. No SI, HI or acute psychosis. Const Vital Signs: 04/20/22 16:17 04/20/22 16:21 04/20/22 17:21 Temperature 97.4 F L 97.4 F L 97.6 F L Temperature Source Temporal Temporal Temporal Pulse Rate 95 95 100 Respiratory Rate 25 H 25 H 17 Blood Pressure 96/80 96/80 124/103 H Blood Pressure Mean 85 85 110 Pulse Ox 96 96 97 Oxygen Delivery Method Room Air Room Air Room Air 04/20/22 18:16 Temperature Temperature Source Pulse Rate 99 Respiratory Rate 15 Blood Pressure 97/61 Blood Pressure Mean 73 Pulse Ox 95 Oxygen Delivery Method Room Air Positive cachectic General Appearance ED: cachectic Nutritional Appearance: cachectic <Dr. Terry Bob DO - Last Filed: 04/20/22 19:05> Physical Exam Const Vital Signs: 04/20/22 16:17 04/20/22 16:21 04/20/22 17:21 Temperature 97.4 F L 97.4 F L 97.6 F L Temperature Source Temporal Temporal Temporal Pulse Rate 95 95 100 Respiratory Rate 25 H 25 H 17 Blood Pressure 96/80 96/80 124/103 H Blood Pressure Mean 85 85 110 Pulse Ox 96 96 97 Oxygen Delivery Method Room Air Room Air Room Air 04/20/22 18:16 Temperature Temperature Source Pulse Rate 99 Respiratory Rate 15 Blood Pressure 97/61 Blood Pressure Mean 73 Pulse Ox 95 Oxygen Delivery Method Room Air MDM <NAYELI Dominguez - Last Filed: 04/20/22 17:59> [facility] MDM Narrative Medical decision making narrative: Patient looks clinically ill, patient has been battling bone cancer for the last 4 years. Over the last 2 weeks, the patient has been more lethargic, not interacting, sleeping most of the time. Patient is here because of the weakness as well as a x-ray showing left lower lobe pneumonia. I had a long conversation with the family as well as the POA, they do not want any IVs, anything that would cause the patient pain. The patient is in continuous pain from being moved due to his edematous body. Patient be treated orally with Levaquin. I did speak with social work, they will be getting a hospice referral that we will go to the patient's ECF. The patient and the family would like the patient to be treated orally with antibiotics and to be sent back to the ESF presents with the patient's 's. I will speak to the physician at the ECF to ensure close to communication. At this time, patient is stable for discharge and instructed return for any worsening issues. <Dr. Terry Bob DO - Last Filed: 04/20/22 19:05> MDM MDM Narrative Medical decision making narrative: This patient was seen with a PA/HYDROELECTRIC COMPONENT MACHINIST Individually assessed they patient including history and physical. I have reviewed everything on the chart that is available and agree with the documentation provided by the PA/HYDROELECTRIC COMPONENT MACHINIST including discussion about the assessment, treatment plan, discussion, and return precautions. 76-year-old male presenting with generalized weakness and lethargy over the last 2 weeks which has been increasing. Does appear that he has a history of cancer 12.3. The patient has been doing poorly. He was diagnosed with pneumonia today on an outpatient chest x-ray but no antibiotics was started. Serum is negative. Nurse practitioner was able to speak to the family 1./POA who stated that they did not want any blood work positive for work-ups and that they wanted the patient to be sent back to the facility for a hospice consult. A referral was sent. Patient will be started on Levaquin for the pneumonia diagnosis.. First dose was given in the ED.. We did speak to the physician at the [facility] who. He is aware of the situation. Patient was discharged back to his facility. Impression: 1. generalized weakness 2. Pneumonia Lab Data Attestation: I reviewed the patient's lab results. Discharge Plan Triage Chief Complaint: Weakness ED Midlevel Provider: Chepe Barron ED Provider: Terry Bob Dx/Rx/DC Orders Clinical Impression: Pneumonia, Cancer of bone, Encephalopathy Instructions: ED Pneumonia (Adult) Prescriptions: New levofloxacin 750 mg tablet 750 mg PO DAILY Qty: 6 RF: 0 No Action warfarin 4 mg tablet 4 mg PO DAILY RF: 0 atorvastatin 40 MG tablet 40 mg PO DAILY RF: 0 acetaminophen 325 MG capsule 1,000 mg PO DAILY PRN PRN (Reason: Pain 1-10 Or Fever) RF: 0 quetiapine 25 mg tablet 25 mg PO QHS RF: 0 tramadol 50 mg Tablet 50 mg PO QHS PRN (Reason: Pain) RF: 0 lorazepam 0.5 mg tablet 0.5 mg PO BID RF: 0 Primary Care Provider: Michaela Meyer Referrals: Michaela Meyer MD [Primary Care Provider] - Activity Restrictions/Additional Instructions: Please follow-up with hospice Print Language: Citizen Of [place] Disposition Disposition: Long-Term Facility Discharge Location: [facility]
[2022-04-20 17:21] VITALS: BP 124/103; PULSE 100; RESP 17; TEMP 36.4; O2SAT 97
[2022-04-20] MEDS: levoFLOXacin 750 MG Tablet PO (17:48)
--- NOTE | 2022-04-20 17:52 | CM.ED ---
Social Work Note TEA spoke with DEMOLITION CRANE OPERATOR, plan is for pt pt to return to [place] with Hospice. Referral to Hospice can be made, pt can return to [place], and then Hospice call follow up with pt when he returns to [place]. Per note, pt's daughter Analilia is POA and Hospice referral was discussed with her via phone and she is agreeable to referral. SW in to speak with pt. Pt's Suzanne present in room and pt's step son. SW updated that pt's daughter, was traveling today. Hospice was discussed and options including making Hospice referral while pt is at [facility] and having pt evaluated for Hospice while he is at [facility] or referral to Hospice can be made and then they can follow up with pt when pt returns to [place], or pt can be evaluated for IPU (inpatient Hospice Unit). Pt's step son agreeable to Hospice referral being made for pt while pt is at [facility] but would like pt to return to [place] with Hospice as pt's also resides at Hospice. Pt's step son states the faster pt can return to [place] the better. Pt's Step Son states he doesn't want pt staying at [facility] for hours at a time and agreeable to referral being made to [facility] and then Hospice following up with pt once he returns to [place]. DEMOLITION CRANE OPERATOR updated. TEA placed a call to [facility] and made Hospice referral to Lauren. TEA informed Lauren that pt is currently at [facility] ED but would like Hospice to evaluate pt once pt returns to [place]. TEA informed Lauren that pt will return to [place] tonight. Lauren states to fax referral to [phone]. Pearl SKINNER placed a call to [place] and updated Tena that referral to Hospice was made. Plan: Return to [place] with Hospice Referral. Hospice to follow up with pt once pt returns to [place]. Elly Murillo MANUFACTURING ASSOCIATE, INTERNAL CONTROL ANALYST
--- NOTE | 2022-04-20 18:00 | ED.RN ---
report called to charlie pearce.
[2022-04-20 18:16] VITALS: BP 97/61; PULSE 99; RESP 15; O2SAT 95
== END 2022-04-20 19:13 | disposition skilled nursing facility (03) ==
PROVIDERS: Emergency Provider Student in an Organized Health Care Education/Training Program; PCP Family Medicine; Visit Provider Student in an Organized Health Care Education/Training Program
DX: R53.1 Weakness (principal); J18.9 Pneumonia, unspecified organism; E78.5 Hyperlipidemia, unspecified; I25.2 Old myocardial infarction; Z79.01 Long term (current) use of anticoagulants; Z79.899 Other long term (current) drug therapy; Z87.891 Personal history of nicotine dependence
CPT/HCPCS: 99285